=== PATIENT | female | born 1940 | race Caucasian/White ===

== ENCOUNTER 2016-05-12 12:13 | Inpatient (IN) | payer MEDICARE, OTHER ==
--- NOTE | 2016-05-12 12:34 | ER Document Report ---
ED Medical Screen (RME) - General Stated Complaint: WEAKNESS Time seen by provider: 12:31 Mode of Arrival: Medic Information source: Patient Notes: 76-year-old female presents to ED presents to ED for cough, sick, states she has not had a fever and very short of breath. She came via EMS and their O2 sat the highest they got was 87. Pulse ox in the ER was 87%. She has crackles throughout all lobes. States she has back pain but denies any chest pain. I have greeted and performed a rapid initial assessment of this patient. A comprehensive ED assessment and evaluation of the patient, analysis of test results and completion of medical decision making process will be conducted by an additional ED providers. TRAVEL OUTSIDE OF THE [place] IN LAST 30 DAYS: No - Related Data Allergies/Adverse Reactions: No Known Allergies Allergy (Verified 05/12/16 12:31) Past Medical History - Past Medical History Cardiac Medical History: Reports: Hx Hypertension Neurological Medical History: Denies: Hx Seizures GI Medical History: Reports: Hx Ulcer Psychiatric Medical History: Reports: Hx Depression Past Surgical History: Denies: Hx Hysterectomy - Immunizations Hx Diphtheria, Pertussis, Tetanus Vaccination: No
[2016-05-12 13:20] LABS: HEMATOCRIT 33.2 % (36.0-47.0); HEMOGLOBIN 10.9 g/dL (12.0-15.5); HGB HCT DIFFERENCE -0.5; MEAN CORPUSCULAR HEMOGLOBIN 32.1 pg (27.0-33.4); MEAN CORPUSCULAR HGB CONC 32.9 g/dL (32.0-36.0); MEAN CORPUSCULAR VOLUME 97 fl (80-97); RED CELL DISTRIBUTION WIDTH 14.3 % (11.5-14.0); WHITE BLOOD COUNT 27.2 10^3/uL (4.0-10.5)
[2016-05-12 13:36] LABS: ALANINE AMINOTRANSFERASE 48 U/L (9-52); ALBUMIN 3.9 g/dL (3.5-5.0); ALKALINE PHOSPHATASE 115 U/L (38-126); ANION GAP 17 (5-19); ASPARTATE AMINO TRANSFERASE 44 U/L (14-36); BILIRUBIN,DIRECT 0.3 mg/dL (0.0-0.4); BILIRUBIN,TOTAL 0.5 mg/dL (0.2-1.3); BLOOD UREA NITROGEN 38 mg/dL (7-20); CALCIUM 9.8 mg/dL (8.4-10.2); CARBON DIOXIDE 22 mmol/L (22-30); CHLORIDE 102 mmol/L (98-107); CREATINE KINASE 192 U/L (30-135); CREATININE RESULT 1.19 mg/dL (0.52-1.25); GLUCOSE 93 mg/dL (75-110); POTASSIUM 4.2 mmol/L (3.6-5.0); SODIUM 141.3 mmol/L (137-145)
[2016-05-12 13:40] LABS: BAND NEUTROPHILS % (MANUAL) 2 % (3-5); BASOPHILS % (MANUAL) 0 % (0-2); EOSINOPHILS % (MANUAL) 0 % (0-6); LYMPHOCYTES % (MANUAL) 2 % (13-45); TOTAL CELLS COUNTED 100
[2016-05-12 13:41] LABS: ANISOCYTOSIS SLIGHT
[2016-05-12 13:48] LABS: CREATINE KINASE MB 2.56 ng/mL (<4.55)
[2016-05-12] MEDS ORDERED: IPRATROPIUM/ALBUTEROL 0.5-2.5 MG/3 ML AMPUL NEB ONE (13:49)
[2016-05-12] MEDS ORDERED: LEVOFLOXACIN 750 MG/D5W RTU 150 ML IV ONE (13:49)
[2016-05-12 13:52] LABS: TROPONIN I 1.42 ng/mL
--- NOTE | 2016-05-12 13:55 | ER Document Report ---
ED General - General Chief Complaint: Weakness Stated Complaint: WEAKNESS Mode of Arrival: Medic Information source: Patient Notes: 76-year-old female presents with complaints of shortness of breath and weakness over the past few days. Patient noted to be satting 89% on room air, she was placed on 2 L nasal cannula by EMS with sats at 95%. Patient denies any productivity to the cough. Denies any fevers TRAVEL OUTSIDE OF THE [place] IN LAST 30 DAYS: No - HPI Onset: Other Onset/Duration: Persistent Quality of pain: Achy Severity: Mild Pain Level: 1 Associated symptoms: Nonproductive cough, Shortness of breath, Weakness Exacerbated by: Denies Relieved by: Denies Similar symptoms previously: No Recently seen / treated by doctor: No - Related Data Allergies/Adverse Reactions: No Known Allergies Allergy (Verified 05/12/16 12:31) Past Medical History - General Information source: Patient - Social History Smoking Status: Current Every Day Smoker Cigarette use (# per day): Yes Chew tobacco use (# tins/day): No Smoking Education Provided: No Frequency of alcohol use: None Drug Abuse: None Family History: Reviewed & Not Pertinent, COPD, Hypertension Patient has suicidal ideation: No Patient has homicidal ideation: No - Past Medical History Cardiac Medical History: Reports: Hx Hypertension Neurological Medical History: Denies: Hx Seizures Renal/ Medical History: Denies: Hx Peritoneal Dialysis GI Medical History: Reports: Hx Ulcer Psychiatric Medical History: Reports: Hx Depression Past Surgical History: Denies: Hx Hysterectomy - Immunizations Hx Diphtheria, Pertussis, Tetanus Vaccination: No Review of Systems - Review of Systems Notes: REVIEW OF SYSTEMS: CONSTITUTIONAL : Denies fever, chills, or sweats. Denies recent illness. EENT: Denies eye, ear, throat, or mouth pain or symptoms. Denies nasal or sinus congestion or discharge. Denies throat, tongue, or mouth swelling or difficulty swallowing. CARDIOVASCULAR: Denies chest pain. Denies palpitations or racing or irregular heart beat. Denies ankle edema. RESPIRATORY: Admits shortness of breath nonproductive cough GASTROINTESTINAL: Denies abdominal pain or distention. Denies nausea, vomiting , or diarrhea. Denies blood in vomitus, stools, or per rectum. Denies black, tarry stools. Denies constipation. GENITOURINARY: Denies difficulty urinating, painful urination, burning, frequency, blood in urine, or discharge. FEMALE GENITOURINARY: Denies vaginal bleeding, heavy or abnormal periods, irregular periods. Denies vaginal discharge or odor. MUSCULOSKELETAL: Denies back or neck pain or stiffness. Denies joint pain or swelling. SKIN: Denies rash, lesions or sores. HEMATOLOGIC : Denies easy bruising or bleeding. LYMPHATIC: Denies swollen, enlarged glands. NEUROLOGICAL: Denies confusion or altered mental status. Denies passing out or loss of consciousness. Denies dizziness or lightheadedness. Denies headache. Denies weakness or paralysis or loss of use of either side. Denies problems with gait or speech. Denies sensory loss, numbness, or tingling. Denies seizures. PSYCHIATRIC: Denies anxiety or stress. Denies depression, suicidal ideation, or homicidal ideation. ALL OTHER SYSTEMS REVIEWED AND NEGATIVE. Dictation was performed using [employer] voice recognition software PHYSICAL EXAMINATION: GENERAL: Well-appearing, well-nourished and in no acute distress. HEAD: Atraumatic, normocephalic. EYES: Pupils equal round and reactive to light, extraocular movements intact, conjunctiva are normal. ENT: Nares patent, oropharynx clear without exudates. Moist mucous membranes. NECK: Normal range of motion, supple without lymphadenopathy LUNGS: Coarse rhonchi all throughout HEART: Regular rate and rhythm without murmurs ABDOMEN: Soft, nontender, nondistended abdomen. No guarding, no rebound. No masses appreciated. Female : deferred Musculoskeletal: Normal range of motion, no pitting or edema. No cyanosis. NEUROLOGICAL: Cranial nerves grossly intact. Normal speech, normal gait. Normal sensory, motor exams PSYCH: Normal mood, normal affect. SKIN: Warm, Dry, normal turgor, no rashes or lesions noted. Physical Exam - Vital signs Vitals: Resp Pulse Ox 20 96 05/12/16 13:28 05/12/16 13:28 Course - Re-evaluation Re-evalutation: 05/12/16 13:54 pt has elevated wbc count 05/12/16 15:12 X-ray appears in no but lower lobe pneumonia, this is not read by radiology. However given the patient's coarse wheezing rest her distress I believe she is septic secondary to this. Patient will be admitted to the hospital service Elevated troponins are noted, I believe this is secondary to the sepsis causing strain on the heart. Patient does not have any cardiac issues at this moment. I do not believe it is appropriate to start heparin at this time - Vital Signs Vital signs: Temp Pulse Resp BP Pulse Ox 17 108/56 L 99 05/12/16 15:01 05/12/16 15:00 05/12/16 15:01 - Laboratory Result Diagrams: 05/12/16 12:40 05/12/16 12:40 Laboratory results interpreted by me: 05/12/16 05/12/16 12:40 12:40 WBC 27.2 H RBC 3.40 L Hgb 10.9 L Hct 33.2 L RDW 14.3 H Seg Neuts % (Manual) 79 H Band Neutrophils % 2 L Lymphocytes % (Manual) 2 L Monocytes % (Manual) 17 H Abs Neuts (Manual) 22.0 H Abs Monocytes (Manual) 4.6 H BUN 38 H Est GFR ( Amer) 53 L Est GFR (Non-Af Amer) 44 L AST 44 H Creatine Kinase 192 H - Diagnostic Test Radiology reviewed: Image reviewed, Reports reviewed - EKG Interpretation by Me EKG shows normal: Sinus rhythm, [place], Intervals, QRS Complexes Voltage: Consistant with LVH Critical Care Note - Critical Care Note Total time excluding time spent on procedures (mins): 34 Comments: 34 minutes of critical care time spent in direct contact evaluating and reevaluating the patient, treating symptoms, reviewing labs and studies and speaking with family and consultants excluding any procedures Discharge - Discharge Clinical Impression: Elevated troponin Sepsis Qualifiers: Sepsis type: sepsis due to unspecified organism Qualified Code(s): A41.9 - Sepsis, unspecified organism Pneumonia Qualifiers: Pneumonia type: due to unspecified organism Laterality: right Lung location: lower lobe of lung Qualified Code(s): J18.1 - Lobar pneumonia, unspecified organism Admitting Provider: Hospitalist Unit Admitted: [facility]
[2016-05-12] MEDS: NORMAL SALINE 1000 ML 1,000 ML IV PRN ×2 (14:09→22:00)
[2016-05-12 14:44] LABS: VENOUS BLOOD BASE EXCESS -3.9 mmol/L; VENOUS BLOOD HCO3 21.9 mmol/L (20-32); VENOUS BLOOD PCO2 42.5 mmHg (35-63); VENOUS BLOOD PH 7.33 (7.30-7.42)
[2016-05-12 15:10] LABS: APPEARANCE,URINE SLIGHTLY-CLOUDY; BILIRUBIN,URINE NEGATIVE (NEGATIVE); GLUCOSE, URINE NEGATIVE (NEGATIVE); KETONES,URINE NEGATIVE (NEGATIVE); LEUKOCYTE ESTERASE,URINE TRACE (NEGATIVE); NITRITE,URINE NEGATIVE (NEGATIVE); PROTEIN,URINE NEGATIVE (NEGATIVE); URINE SPECIFIC GRAVITY 1.009; UROBILINOGEN,URINE NEGATIVE mg/dL (<2.0)
[2016-05-12] MEDS ORDERED: NORMAL SALINE 1000 ML 1,000 ML IV PRN (15:50)
[2016-05-12] MEDS ORDERED: NICOTINE 14 MG/24 HR PATCH.TD24 TD PRN (15:58)
[2016-05-12] MEDS ORDERED: NORMAL SALINE 1000 ML 1,500 ML IV ONE (16:27)
--- NOTE | 2016-05-12 16:28 | PDOC H&P ---
History of Present Illness Admission Date/PCP: 05/12/16 15:45 History of Present Illness: MARY JANE CABA is a 76 year old female with a past medical history of hypertension, chronic back pain, depression, and COPD who continues to use tobacco who presents via EMS with shortness of breath. Patient reports that she 's been sick for at least a week and feeling worse over the last 48 hours. She reports fever and associated chills and rigors beginning today. She reports she had a cortisone injection in her back on Monday. She reports that she's had shortness of breath for at least a week or more and a cough productive of white sputum. She feels chest congestion and has had difficulty prompting her to activate EMS. Complete history of present illness is limited based on patient's lethargy. Upon EMS arrival patient was found to have oxygen saturation of 87% was placed on 2 L nasal cannula, given and albuterol and Atrovent nebulized treatment, and Levaquin and IV fluids in the emergency department. She is referred to hospital service for sepsis and pneumonia. Patient's medications are currently undergoing reconciliation and list provided is automatically generated by [employer]. Past Medical History Cardiac Medical History: Reports: Hypertension Pulmonary Medical History: Reports: Chronic Obstructive Pulmonary Disease (COPD) Neurological Medical History: Denies: Seizures Musculoskeltal Medical History: Reports: Arthritis Psychiatric Medical History: Reports: Depression Past Surgical History Past Surgical History: Reports: Orthopedic Surgery - R Shoulder Denies: Hysterectomy Social History Smoking Status: Current Every Day Smoker Cigarettes Packs Per Day: 1 Frequency of Alcohol Use: None Hx Recreational Drug Use: No Drugs: None Hx Prescription Drug Abuse: No - Advance Directive Resuscitation Status: Do Not Resuscitate Surrogate healthcare decision maker:: Barbara, [id number] Family History Family History: COPD, Hypertension, Malignancy Parental Family History Reviewed: Yes Children Family History Reviewed: Yes Sibling(s) Family History Reviewed.: Yes Medication/Allergy Home Medications: Diazepam [Valium 5 mg Tablet] 5 mg PO DAILYP PRN 05/12/16 Diclofenac Sodium [Voltaren] 1 applic TP TIDP PRN 05/12/16 Duloxetine HCl 30 mg PO QPM 05/12/16 Duloxetine HCl 60 mg PO DAILY 05/12/16 Gabapentin [Neurontin 300 mg Capsule] 300 mg PO TIDP PRN 05/12/16 Prednisone [Deltasone 20 mg Tablet] 20 mg PO TID 05/12/16 Temazepam [Restoril] 30 mg PO HSP PRN 05/12/16 Allergies/Adverse Reactions: No Known Allergies Allergy (Verified 05/12/16 12:31) Review of Systems Constitutional: PRESENT: anorexia, chills, fatigue, fever(s), weakness. ABSENT : headache(s), weight gain, weight loss Eyes: ABSENT: visual disturbances Ears: ABSENT: hearing changes Nose, Mouth, and Throat: ABSENT: mouth pain, sore throat Cardiovascular: ABSENT: chest pain, dyspnea on exertion, edema, orthropnea, palpitations Respiratory: PRESENT: cough, dyspnea, sputum. ABSENT: hemoptysis Gastrointestinal: ABSENT: abdominal pain, constipation, diarrhea, hematemesis, hematochezia, melena, nausea, vomiting Genitourinary: ABSENT: dysuria, hematuria Musculoskeletal: ABSENT: joint swelling Integumentary: ABSENT: rash, wounds Neurological: ABSENT: abnormal gait, abnormal speech, confusion, dizziness, focal weakness, syncope Psychiatric: ABSENT: anxiety, depression, homidical ideation, suicidal ideation Endocrine: ABSENT: cold intolerance, heat intolerance, polydipsia, polyuria Hematologic/Lymphatic: ABSENT: easy bleeding, easy bruising Physical Exam Vital Signs: Temp Pulse Resp BP Pulse Ox 17 108/56 L 99 05/12/16 15:01 05/12/16 15:00 05/12/16 15:01 General appearance: PRESENT: mild distress, obese, well-developed, well- nourished Head exam: PRESENT: atraumatic, normocephalic Eye exam: PRESENT: conjunctiva pink, EOMI, PERRLA. ABSENT: scleral icterus Ear exam: PRESENT: normal external ear exam Mouth exam: PRESENT: dry mucosa, tongue midline Neck exam: PRESENT: lymphadenopathy. ABSENT: JVD, thyromegaly, tracheal deviation Respiratory exam: PRESENT: accessory muscle use, crackles, prolonged expiratory phas, rhonchi, symmetrical, unlabored. ABSENT: decreased breath sounds, rales, tachypnea, wheezes Cardiovascular exam: PRESENT: RRR, +S1, +S2. ABSENT: diastolic murmur, gallop, rubs, systolic murmur Pulses: PRESENT: normal dorsalis pedis pul Vascular exam: PRESENT: normal capillary refill GI/Abdominal exam: PRESENT: diminished bowel sounds, soft. ABSENT: distended, firm, guarding, mass, Leos's sign, organolmegaly, rebound, rigid, tenderness Rectal exam: PRESENT: deferred Extremities exam: PRESENT: full ROM. ABSENT: calf tenderness, clubbing, pedal edema Neurological exam: PRESENT: altered - Lethargic, CN II-XII grossly intact. ABSENT: motor sensory deficit Psychiatric exam: PRESENT: appropriate affect, normal mood. ABSENT: homicidal ideation, suicidal ideation Skin exam: PRESENT: dry, intact, warm. ABSENT: cyanosis, rash Results Laboratory Results: 05/12/16 05/12/16 05/12/16 12:40 12:40 12:40 WBC 27.2 H Hgb 10.9 L Hct 33.2 L Plt Count 199 Sodium 141.3 Potassium 4.2 Chloride 102 Carbon Dioxide 22 Anion Gap 17 BUN 38 H Creatinine 1.19 Glucose 93 Lactic Acid Calcium 9.8 Total Bilirubin 0.5 Direct Bilirubin 0.3 AST 44 H ALT 48 Alkaline Phosphatase 115 Creatine Kinase 192 H CK-MB (CK-2) 2.56 Troponin I 1.420 Total Protein 7.0 Albumin 3.9 Ur Leukocyte Esterase Urine WBC (Auto) 05/12/16 05/12/16 14:25 14:40 WBC Hgb Hct Plt Count Sodium Potassium Chloride Carbon Dioxide Anion Gap BUN Creatinine Glucose Lactic Acid 1.4 Calcium Total Bilirubin Direct Bilirubin AST ALT Alkaline Phosphatase Creatine Kinase CK-MB (CK-2) Troponin I Total Protein Albumin Ur Leukocyte Esterase TRACE H Urine WBC (Auto) 9 Impressions: Chest X-Ray 05/12/16 13:52 IMPRESSION: NO ACUTE RADIOGRAPHIC FINDING IN THE CHEST. Status: Imported from PACS Assessment & Plan - Diagnosis (1) Sepsis Qualifiers: Sepsis type: sepsis due to unspecified organism Qualified Code(s): A41.9 - Sepsis, unspecified organism Is this a current diagnosis for this admission?: YesPlan: Patient with underlying pneumonia clinically though nothing present on chest x- ray. Patient on Levaquin and cefepime. Patient is artery receive 2 L of normal saline will give her an additional 1 1/2 L bolus and then run fluids judiciously. Maintain a map greater than 65. (2) Acute hypoxemic respiratory failure Is this a current diagnosis for this admission?: YesPlan: Oxygen as needed and BiPAP to maintain saturation greater than 94% (3) Elevated troponin Is this a current diagnosis for this admission?: YesPlan: Likely secondary to sepsis. Will consult cardiology. (4) Pneumonia Qualifiers: Pneumonia type: due to unspecified organism Laterality: right Lung location: lower lobe of lung Qualified Code(s): J18.1 - Lobar pneumonia, unspecified organism Is this a current diagnosis for this admission?: YesPlan: Place patient on cefepime and Levaquin. Patient has COPD. Initiate patient on Solu-Medrol. Will check a influenza. Will check ABG and place when necessary BiPAP. Incentive spirometry and flutter valve. Concern for this time for gram-negative pneumonia as patient had recent history of GI bleed and patient has previously been on benzodiazepines which may lead to aspiration given her underlying COPD. (5) Hypertension Qualifiers: Hypertension type: essential hypertension Qualified Code(s): I10 - Essential (primary) hypertension Is this a current diagnosis for this admission?: YesPlan: Hold antihypertensives at this time she is mildly hypotensive (6) Tobacco abuse Is this a current diagnosis for this admission?: YesPlan: Nicotine patch when necessary - Time Time Spent: 50 to 70 Minutes Medications reviewed and adjusted accordingly: Yes - Inpatient Certification Based on my medical assessment, after consideration of the patient's comorbidities, presenting symptoms, or acuity I expect that the services needed warrant INPATIENT care.: Yes I certify that my determination is in accordance with my understanding of Medicare's requirements for reasonable and necessary INPATIENT services [42 CFR 412.3e].: Yes Medical Necessity: Need For IV Fluids, Need For Continuous Telemetry Monitoring , Need for Nebulizer Therapy and Monitoring of Response, Need for IV Antibiotics Post Hospital Care: D/C Siding Stapler Documentation
[2016-05-12] MEDS: IPRATROPIUM/ALBUTEROL 0.5-2.5 MG/3 ML AMPUL NEB SCH ×2 (16:54→20:15)
[2016-05-12] MEDS ORDERED: CEFEPIME 2 GM/D5W RTU 2 GM/50 ML RTUPB IV SCH (18:00)
[2016-05-12] MEDS ORDERED: RISPERIDONE 0.5 MG PO SCH (18:00)
[2016-05-12] MEDS: SUCRALFATE SUSP 1 GM/10 ML UDCUP PO SCH (18:39)
[2016-05-12] MEDS: METHYLPREDNISOLONE INJ 40 MG/1 ML SDV IV SCH (18:39)
[2016-05-12] MEDS: DOCUSATE SODIUM 100 MG CAPSULE PO SCH (18:39)
[2016-05-12] MEDS: LANSOPRAZOLE 30 MG TAB.RAP.DR PO SCH (18:40)
[2016-05-12 18:50] LABS: URINE BARBITURATES SCREEN NEGATIVE; URINE METHADONE SCREEN NEGATIVE; URINE OPIATES LOW NEGATIVE; URINE PHENCYCLIDINE SCREEN NEGATIVE
[2016-05-12 19:09] LABS: CREATINE KINASE MB 4.24 ng/mL (<4.55)
[2016-05-12 19:13] LABS: TROPONIN I 2.35 ng/mL
[2016-05-12] MEDS: CEFEPIME HCL 2 GM in DEXTROSE 5%-WATER 50 ML IV SCH (19:54)
--- NOTE | 2016-05-12 20:43 | EKG REPORT ---
SEVERITY:- ABNORMAL ECG - SINUS RHYTHM MULTIPLE ATRIAL PREMATURE COMPLEXES LEFT ANTERIOR FASCICULAR BLOCK LVH WITH SECONDARY REPOLARIZATION ABNORMALITY ANTERIOR Q WAVES, POSSIBLY DUE TO LVH : Confirmed by: Jazzmine Gutierrez 12-May-2016 20:42:36
[2016-05-12] MEDS: SENNOSIDES/DOCUSATE 8.6-50 MG 1 EACH TABLET PO SCH (21:18)
[2016-05-12] MEDS: GUAIFENESIN 600 MG TABLET.SA PO SCH (21:18)
[2016-05-12] MEDS ORDERED: DIAZEPAM 2 MG TABLET PO PRN (21:30)
[2016-05-12] MEDS ORDERED: TEMAZEPAM 15 MG PO PRN (21:30)
[2016-05-12] MEDS: TEMAZEPAM 15 MG CAPSULE PO PRN (21:58)
[2016-05-12] MEDS ORDERED: SUCRALFATE SUSP 1 GM/10 ML UDCUP PO SCH (22:00)
[2016-05-12] MEDS ORDERED: RISPERIDONE 1 MG PO SCH (22:00)
[2016-05-13] MEDS: METHYLPREDNISOLONE INJ 40 MG/1 ML SDV IV SCH ×5 (00:04→23:47)
[2016-05-13 04:34] LABS: HEMATOCRIT 28.6 % (36.0-47.0); HEMOGLOBIN 9.5 g/dL (12.0-15.5); HGB HCT DIFFERENCE -0.1; MEAN CORPUSCULAR HEMOGLOBIN 32.5 pg (27.0-33.4); MEAN CORPUSCULAR VOLUME 98 fl (80-97); RED BLOOD COUNT 2.91 10^6/uL (3.72-5.28); RED CELL DISTRIBUTION WIDTH 14.4 % (11.5-14.0); WHITE BLOOD COUNT 16.2 10^3/uL (4.0-10.5)
[2016-05-13 05:02] LABS: ANION GAP 13 (5-19); BLOOD UREA NITROGEN 29 mg/dL (7-20); CALCIUM 8.4 mg/dL (8.4-10.2); CARBON DIOXIDE 21 mmol/L (22-30); CHLORIDE 111 mmol/L (98-107); CREATININE RESULT 0.89 mg/dL (0.52-1.25); GLUCOSE 151 mg/dL (75-110); POTASSIUM 4.3 mmol/L (3.6-5.0); SODIUM 144.5 mmol/L (137-145)
[2016-05-13 05:09] LABS: BASOPHILS % (MANUAL) 0 % (0-2); EOSINOPHILS % (MANUAL) 0 % (0-6); LYMPHOCYTES % (MANUAL) 1 % (13-45); TOTAL CELLS COUNTED 100
[2016-05-13 05:10] LABS: ANISOCYTOSIS SLIGHT; BURR CELLS SLIGHT; OVALOCYTES SLIGHT; TOXIC GRANULATION SLIGHT
[2016-05-13] MEDS: LEVALBUTEROL HCL NEB 1.25 MG/3 ML AMPUL NEB PRN (05:44)
[2016-05-13] MEDS ORDERED: FONDAPARINUX SODIUM INJ 2.5 MG/0.5 ML DISP.SYRIN SUBCUT SCH (08:00)
[2016-05-13] MEDS: IPRATROPIUM/ALBUTEROL 0.5-2.5 MG/3 ML AMPUL NEB SCH ×4 (08:51→19:45)
[2016-05-13] MEDS: DOCUSATE SODIUM 100 MG CAPSULE PO SCH ×2 (09:25→17:24)
[2016-05-13] MEDS: LEVOFLOXACIN 750 MG/D5W RTU 150 ML IV SCH (09:25)
[2016-05-13] MEDS: GUAIFENESIN 600 MG TABLET.SA PO SCH ×2 (09:25→21:16)
[2016-05-13] MEDS: LANSOPRAZOLE 30 MG TAB.RAP.DR PO SCH ×2 (09:26→16:03)
[2016-05-13] MEDS: CEFEPIME HCL 2 GM in DEXTROSE 5%-WATER 50 ML IV SCH ×2 (09:29→19:15)
[2016-05-13] MEDS: SUCRALFATE SUSP 1 GM/10 ML UDCUP PO SCH ×4 (09:31→21:20)
[2016-05-13] MEDS ORDERED: DIAZEPAM 5 MG TABLET PO PRN (10:11)
[2016-05-13] MEDS ORDERED: GABAPENTIN 300 MG CAPSULE PO PRN (10:11)
[2016-05-13] MEDS ORDERED: NORMAL SALINE 1000 ML 1,000 ML IV PRN (10:14)
--- NOTE | 2016-05-13 10:54 | EKG REPORT ---
SEVERITY:- ABNORMAL ECG - SINUS RHYTHM VENTRICULAR PREMATURE COMPLEX LEFT AXIS DEVIATION LVH WITH SECONDARY REPOLARIZATION ABNORMALITY ANTERIOR Q WAVES, POSSIBLY DUE TO LVH PROLONGED QT INTERVAL : Confirmed by: Jazzmine Gutierrez 13-May-2016 10:53:43
[2016-05-13] MEDS: GABAPENTIN 300 MG CAPSULE PO SCH ×2 (12:33→21:15)
--- NOTE | 2016-05-13 13:58 | PDOC PROGRESS REPORT ---
Subjective Progress Note for:: 05/13/16 Subjective:: Patient reports that she's feeling much better than yesterday. She reports that she had dark stool. Patient also states that she's had interval loss of vision from her left eye. 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 She reports that now everything is blurry in that eye. She denies any ocular pain. Patient denies chest pain, abdominal pain, nausea, vomiting, fevers, chills, diarrhea, constipation, headache, new onset weakness. Physical Exam Vital Signs: Temp Pulse Resp BP Pulse Ox 98.5 F 83 24 H 142/70 H 95 05/13/16 03:35 05/13/16 06:06 05/13/16 06:06 05/13/16 03:35 05/13/16 06:06 Intake & Output 05/12/16 05/13/16 05/14/16 06:59 06:59 06:59 Intake Total 2103 Output Total 450 Balance 1653 Weight 54.9 kg Exam: General: Awake alert and oriented x3, no acute respiratory distress HEENT: AT/NC, PERRL, EOMI, oropharynx is moist, pink, no scleral icterus, no conjunctival injection Neck: No JVD, trachea midline Chest: Rhonchi bilateral bibasilar CV: Regular rate and rhythm, normal S1 and S2, no rub or gallop; 2/6 sm apex Abdomen: Soft, nontender to palpation, nondistended, active bowel sounds; no rebound, rigidity, or guarding Extremities: No cyanosis, clubbing or edema Neuro: Cranial nerves II through XII are intact without focal deficits; awake alert and oriented x3; strength 5 out of 5 bilateral upper and lower extremities Psych: Depressed mood, normal affect Results Laboratory Results: 05/13/16 03:46 05/13/16 03:46 05/13/16 05/13/16 03:46 03:46 WBC 16.2 H RBC 2.91 L Hgb 9.5 L Hct 28.6 L MCV 98 H MCH 32.5 MCHC 33.0 RDW 14.4 H Plt Count 165 Seg Neutrophils % Not Reportable Lymphocytes % Not Reportable Monocytes % Not Reportable Eosinophils % Not Reportable Basophils % Not Reportable Absolute Neutrophils Not Reportable Absolute Lymphocytes Not Reportable Absolute Monocytes Not Reportable Absolute Eosinophils Not Reportable Absolute Basophils Not Reportable Sodium 144.5 Potassium 4.3 Chloride 111 H Carbon Dioxide 21 L Anion Gap 13 BUN 29 H Creatinine 0.89 Est GFR ( Amer) > 60 Est GFR (Non-Af Amer) > 60 Glucose 151 H Calcium 8.4 05/12/16 05/12/16 05/13/16 18:35 18:35 00:27 Creatine Kinase 255 H CK-MB (CK-2) 4.24 Troponin I 2.350 1.350 Impressions: Chest X-Ray 05/12/16 13:52 IMPRESSION: NO ACUTE RADIOGRAPHIC FINDING IN THE CHEST. Assessment & Plan - Diagnosis (1) Sepsis Qualifiers: Sepsis type: sepsis due to unspecified organism Qualified Code(s): A41.9 - Sepsis, unspecified organism Is this a current diagnosis for this admission?: YesPlan: Patient with underlying pneumonia clinically though nothing present on chest x- ray. Patient on Levaquin and cefepime. Maintain a map greater than 65. (2) Acute hypoxemic respiratory failure Is this a current diagnosis for this admission?: YesPlan: Oxygen as needed and BiPAP to maintain saturation greater than 94% (3) Pneumonia Qualifiers: Pneumonia type: due to unspecified organism Laterality: right Lung location: lower lobe of lung Qualified Code(s): J18.1 - Lobar pneumonia, unspecified organism Is this a current diagnosis for this admission?: YesPlan: On cefepime and Levaquin day #2. Incentive spirometry and flutter valve. Patient has COPD. will decrease Solu-Medrol. Influenza negative. Concern for this time for gram-negative pneumonia as patient at this time describes significant dysphasia with eating and drinking. Particularly drinking thin liquids (4) NSTEMI (non-ST elevated myocardial infarction) Is this a current diagnosis for this admission?: YesPlan: Patient with a non-ST segment myocardial infarction. This was likely precipitated due to underlying disease which became symptomatic when patient was hypoxic. The extent this also appears to be exaggerated by her sepsis. Will obtain an echo. Appreciate cardiology input. Have discussed this case with Dr. BURKETT of cardiology. Patient not candidate for anticoagulation due to recent GI bleed. Will initiate patient on metoprolol and lisinopril. (5) Acute loss of vision Qualifiers: Laterality: left Qualified Code(s): H53.132 - Sudden visual loss, left eye Is this a current diagnosis for this admission?: YesPlan: We'll check a CT of the head. Most likely this is a progression of her underlying visual difficulties for which patient utilizes both prescription and [id number] glasses at the same time. Will place refresh eyedrops. On physical examination, patient's vision is blurred but still present. Patient has no pain and have considered acute glaucoma, but is unlikely. (6) Duodenal ulcer due to nonsteroidal anti-inflammatory drug (NSAID) Is this a current diagnosis for this admission?: YesPlan: In light of patient's recent what also and complaints of melena, will check occult blood. Have held all anticoagulation due to risk of bleeding. Patient is not a candidate for initiation of heparin, Lovenox, or aspirin or Plavix for her non-STEMI. Patient on Carafate and Prevacid. (7) Tobacco abuse Is this a current diagnosis for this admission?: YesPlan: Nicotine patch when necessary (8) Hypertension Qualifiers: Hypertension type: essential hypertension Qualified Code(s): I10 - Essential (primary) hypertension Is this a current diagnosis for this admission?: YesPlan: Low-dose lisinopril and metoprolol - Time Time Spent with patient: 35 or more minutes Medications reviewed and adjusted accordingly: Yes Anticipated discharge: Acute Rehab - Inpatient Certification Based on my medical assessment, after consideration of the patient's comorbidities, presenting symptoms, or acuity I expect that the services needed warrant INPATIENT care.: Yes I certify that my determination is in accordance with my understanding of Medicare's requirements for reasonable and necessary INPATIENT services [42 CFR 412.3e].: Yes Medical Necessity: Need For Continuous Telemetry Monitoring, Need for Nebulizer Therapy and Monitoring of Response, Need for IV Antibiotics Post Hospital Care: D/C Driver Retraining Instructor Documentation
[2016-05-13] MEDS ORDERED: LISINOPRIL 5 MG TABLET PO ONE (15:00)
[2016-05-13] MEDS: ACETAMINOPHEN 325 MG TABLET PO PRN (17:23)
[2016-05-13] MEDS: DULOXETINE HCL 30 MG CAPSULE.DR PO SCH (17:23)
[2016-05-13] MEDS: METOPROLOL TARTRATE 25 MG TABLET PO SCH (21:15)
[2016-05-13] MEDS: SENNOSIDES/DOCUSATE 8.6-50 MG 1 EACH TABLET PO SCH (21:16)
[2016-05-13] MEDS: TEMAZEPAM 15 MG CAPSULE PO PRN (21:18)
[2016-05-13] MEDS ORDERED: ENALAPRILAT DIHYDRATE INJ/PF 1.25 MG/1 ML SDV IV ONE ×2 (22:19→22:45)
[2016-05-14] MEDS: LEVALBUTEROL HCL NEB 1.25 MG/3 ML AMPUL NEB PRN (04:18)
--- NOTE | 2016-05-14 04:59 | CONSULTATION REPORT E ---
Consultation Report NAME: MARY JANE CABA : 1940 AGE: 76Y DATE: 05/13/2016 303 A TO: BREE NEVILLE M.D. FROM: Requesting Physician HISTORY OF PRESENT ILLNESS: Patient is a 76-year-old female with known history of COPD, who continues to smoke, complains that for the past 1 week, she was feeling more short of breath and progressively increased rest shortness of breath. She also had fever, chills, and rigors, and that her last temperature is not known. There was also some wheezing. She also had cough, productive of whitish sputum and there was orthopnea, but no leg edema or PND. She could feel palpitations. There was no dizziness or syncope, but the patient complained of generalized weakness. She also felt congestion in the chest and had difficulty trying to get the EMS to come, due to her inability to call them. Upon arrival to the EMS, O2 saturation on room air was 88%. The patient was placed on 2 liters nasal cannula and given albuterol and Atrovent nebulizer treatment, and also Levaquin and IV fluids in the emergency room and subsequently at present, she seems to be still short of breath, but much improved. She denies any chest pain or discomfort. She still has some orthopnea with no leg edema. There are no TIA or CVA symptoms. There is no PND. She denies any chest pains. Initial EKG on admission showed T inversion in the anterior lead and nonspecific ST-T changes in the lateral lead. This was on admission when she was hypoxemic. Subsequently, the patient's O2 saturations were much improved on O2 and treatment and treatment with the anti-COPD medication and antibiotics. The patient's EKG done this morning shows that the T-waves have normalized in the anterior lead and the ST-T changes have much improved. Note that there were APCs in both the EKGs. PAST MEDICAL HISTORY: Positive for history of hypertension and history of COPD. The patient continues to smoke. She also has history of arthritis and depression. There is no history of sleep apnea. No history of pulmonary embolism. She has no history of diabetes mellitus or thyroid disease. She denies any syncopal episodes. There is no history of ND, angina, or coronary artery disease. Note she has had a history of stroke in the past. Voice is hoarse, but no residual sequelae. The patient has a past history of large duodenal ulcer, which had bled. Hence, the patient is not a candidate for anticoagulation. 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 PAST SURGICAL HISTORY: Right rotator cuff shoulder surgery. She has also had carotid stents. She also has bilateral knee surgery.Removal of cancerous laryngeal polyp. SOCIAL HISTORY: The patient currently smokes. There is no history of EtOH consumption. She smokes 1 packet of cigarettes a day. CODE STATUS: The patient is a DNR/DNI. SURROGATE HEALTHCARE DECISION MAKER: The surrogate healthcare decision maker is the patient's [id number], Ms. Jimenez. FAMILY HISTORY: Positive for COPD, malignancy and hypertension. The patient's parents family history, the patient's children and siblings' histories have been reviewed and these are negative. ALLERGIES: She has no known allergies. CURRENT MEDICATIONS: 1. Acetaminophen 650 mg p.o. q. 4 hours p.r.n. 2. She is on cefepime 2 g IV q. 12 hours. 3. She is on diazepam 5 mg p.o. daily p.r.n. 4. She is on Colace 100 mg p.o. b.i.d. 5. She is on Cymbalta 60 mg p.o. daily in the morning and 30 mg in the p.m. 6. She is on Neurontin 300 mg p.o. q. 8 hours for chronic back pain. 7. She is on Mucinex sustained release 600 mg p.o. q. 12 hours. 8. She is on Levaquin 750 mg IV daily. 9. She did receive 2 bags of normal saline IV. 10. She is on ipratropium, albuterol sulfate nebulizer treatment q. 4 hours while awake. 11. She is on lansoprazole 30 mg p.o. b.i.d. (Prevacid). 12. She is on Xopenex 1.25 mg nebulizer treatment q. 12 hours p.r.n. 13. She is on lisinopril 2.5 mg x1 and 2.5 mg p.o. daily. 14. She is on methylprednisolone 80 mg IV q. 6 hours. 15. She is on metoprolol 12.5 mg p.o. q. 12 hours. 16. She is on NicoDerm patch 14 mg per 24 hours, 1 patch daily. 17. She is on sennosides/docusate 1 each p.o. at bedtime. 18. She is on sucralfate 1 g p.o. at breakfast and at bedtime. 19. She is on temazepam 15 mg p.o. at bedtime p.r.n. 20. She is on normal saline at 83 mL per hour. REVIEW OF SYSTEMS: CONSTITUTIONAL: She complains of decreased appetite that is anorexia, chills, fatigue, fever, and generalized weakness. HEAD: Denies any headaches or head injury. EYES: No history of amblyopia or diplopia. No history of amaurosis fugax. EARS: No history of hearing change or loss. No history of vertigo. No history of tinnitus. No history of recurrent ear infections. NOSE: No history of hay fever. No history of nosebleeds. No history of nasal polyps. MOUTH: No altered taste sensation. No ulcers in the mouth. No bleeding from the gums. THROAT: No history of odynophagia or dysphagia. The patient has a hoarse voice. There are no recurrent sore throats. SKIN: No history of skin rashes. No history of psoriasis. No history of pruritus. No history of yellowish discoloration of the skin. NECK: No history of symptoms suggestive of C-spine arthritis. No history of painful or painless swelling in the neck. No goiter. LUNGS: History of COPD. Patient continues to smoke. The patient states that with even minimal work she gets short of breath. Recent symptoms suggestive of acute exacerbation of COPD with bronchitis. She has no history of sleep apnea. No history of pulmonary embolism. No history of hemoptysis. No history of pleuritic chest pain. CARDIAC: History of hypertension present. No history of atrial arrhythmias or ventricular arrhythmias. No history of congestive heart failure. No history of coronary artery disease, ND or anginal symptoms. No history of PND. History of orthopnea present. No history of leg edema. No history of palpitations or syncope. GASTROINTESTINAL: Past history of large duodenal ulcer with bleeding, but no symptoms of peptic ulcer disease at present. No history of fatty food intolerance. No history of altered bowel movements. No history of abdominal pain. History of decreased appetite and anorexia present. MUSCULOSKELETAL: History of osteoarthritis present. No history of collagen vascular disease. RENAL: She denies any history of chronic kidney disease. GENITOURINARY: No symptoms of UTI. No history of hematuria, pyuria or dysuria. CENTRAL NERVOUS SYSTEM: Prior history of stroke, fully recovered except for hoarseness of voice, she says. There is no history of gait imbalance. No history of sleep apnea. No history of headaches or seizures or dizziness. PSYCHIATRIC: History of depression. No history of suicidal ideation. No history of anxiety. HEMATOLOGICAL: No history of bleeding diathesis or clotting disorders. VASCULAR: No history of calf or buttock claudication. No history of DVT. The patient is seen around 10:30 this morning of 05/13/2016. ENDOCRINE: There is no history of diabetes mellitus or thyroid disease. No history of polydipsia or polyuria. No history of heat or cold intolerance. No history of hirsutism. No history of excessive sweating. As mentioned earlier, her O2 sats now are 90% to 95% and the EKG changes have resolved. PHYSICAL EXAMINATION: GENERAL: On examination, the patient is in mild distress due to shortness of breath when she moves around, but at rest she has no distress and says that her bleeding is much improved with the current treatment. She is well-built, but looks chronically ill. VITAL SIGNS: She is afebrile with a temperature of 98.2 degrees Fahrenheit only, pulse is 96 beats per minute, blood pressure is 166/71, respirations are 20 per minute, O2 sats are 98% on 1 liter, and subsequently 95% on 2 liters nasal cannula. HEAD: Atraumatic, normocephalic. EYES: Pupils are equal, round, regular, and reactive to light and accommodation. Extraocular movements are normal. There is no conjunctival pallor. There is no scleral icterus. EARS: There are no lesions on the pinna. External auditory canals are clear. Tympanic membranes are intact. NOSE: There is no deviated nasal septum. There is inflammation of nasal mucous membrane. MOUTH: Mucous membranes of the mouth are moist. Tongue is moist. There are no ulcers. There is no bleeding from the gums. THROAT: There is no redness of the oral veins. There are no exudates in the throat. SKIN: There are no skin rashes. There are no petechiae or ecchymoses. NECK: Supple. There is no JVD. Carotids are equal. There is no bruit. There are no accessory muscles of respiration in use. There is no goiter. There is no lymphadenopathy. Carotids are equal. There is no bruit. Trachea is shifted to the left. LUNGS: Show diminished air entry and prolonged expiration with rhonchi bilaterally. HEART: S1, S2 is heard. There is no S3 gallop. There is no S4 gallop. There is a systolic murmur in left sternal border in the apex. There is no diastolic murmur. There is no rub. ABDOMEN: Soft, nontender. There is no hepatosplenomegaly. Bowel sounds are well heard. There is no rebound, guarding, rigidity or tenderness. EXTREMITIES: Femorals are diminished. There are no femoral bruits. Leg pulses are diminished. There is no DVT or cellulitis. There is no calf tenderness. There is no cyanosis or clubbing. CENTRAL NERVOUS SYSTEM: The patient is conscious, awake, alert, oriented x3 with no focal deficits. PSYCHIATRIC: At present, the patient does not appear to be anxious or depressed. DIAGNOSTIC DATA: The patient's chest x-ray shows that this is a normal chest x-ray by report, but I suspect there is an early RLL pneumonia. The patient's head CT due to the patient complained of left eye vision los s, shows no hemorrhage, no masses, no midline shift, areas of low density in the white matter, most likely due to chronic microvascular ischemic change. No evidence of acute infarction. No masses. No hemorrhage. No alteration of density. No evidence of acute infarction. There is no mass or hematoma. The patient's sodium is 144.5, potassium 4.3, chloride is 111, and CO2 is 21. The patient's BUN is 29, creatinine is 0.89, GFR is greater than 60, glucose is 151, and calcium is 8.4. Note, her troponin I initially was 1.420 and increased to 2.35 and then have now trended down to 1.350. The patient's white count is 16,200, which is down from 27,200 yesterday; her hemoglobin is 9.5, hematocrit is 28.6 and the platelet count is 165,000. The patient's urine opiate screen, methadone screen, barbiturate screen, phencyclidine screen, amphetamine screen, benzodiazepine screen, urine cocaine screen, and urine marijuana screen are all negative. The patient's influenza A and influenza B rapid tests have been negative. IMPRESSION: 1. ELEVATED TROPONIN I, secondary to mostly hypoxemia. 2. ABNORMAL EKG WITH RESOLVED EKG CHANGES AND THE PATIENT'S O2 SATS CAME BACK TO NORMAL. The EKG changes were present as I have mentioned earlier when the patient was hypoxemic. 3. MOST LIKELY, THIS IS SUPPLY DEMAND MISMATCH AND NOT A NON-ST ELEVATION MYOCARDIAL INFARCTION, but patient does have some risk factors such as age, hypertension, smoking and ? lipid level. 4. CHRONIC OBSTRUCTIVE PULMONARY DISEASE, acute exacerbation. 5. RLL PNEUMONIA. 6.HYPERTENSION. Blood pressure is still a little high. 7. DEPRESSION. 8. HISTORY OF ARTHRITIS. 9. TOBACCO ABUSE. 10. CHRONIC BACK PAIN. RECOMMENDATIONS: Agree with the current treatment including antibiotics. Note in view of the patient's past history of large duodenal ulcer, would hesitate to put the patient on aspirin or Plavix. We would recommend later when the acute COPD exacerbation is over. We would increase the patient's beta-farida. Continue other treatments. Note, 45 minutes spent on patient's consult, with more than 50% of the time spent in direct patient care, also, discussions with the hospitalist, taking care of the patient and also the nurses taking care of the patient. We will follow with you. Later once if the patient and sister are agreeable, then we would recommend that the patient have an IV Lexiscan, Cardiolite stress test done as an outpatient. Also, we would check an echocardiogram. Note that the patient was seen at 11:30 a.m. Thanking you. DICTATING PHYSICIAN: BREE NEVILLE M.D. [id number] PHY#: [id number] ID: [id number] JOB#: [id number] ACCT: [id number] cc:BREE NEVILLE M.D. > [facility]ERKeara
[2016-05-14] MEDS: METHYLPREDNISOLONE INJ 40 MG/1 ML SDV IV SCH ×3 (05:12→21:29)
[2016-05-14] MEDS: GABAPENTIN 300 MG CAPSULE PO SCH ×3 (05:12→21:28)
[2016-05-14 05:26] LABS: HEMATOCRIT 26.9 % (36.0-47.0); HGB HCT DIFFERENCE 0.1; MEAN CORPUSCULAR HEMOGLOBIN 32.8 pg (27.0-33.4); MEAN CORPUSCULAR HGB CONC 33.6 g/dL (32.0-36.0); MEAN CORPUSCULAR VOLUME 98 fl (80-97); RED BLOOD COUNT 2.75 10^6/uL (3.72-5.28); RED CELL DISTRIBUTION WIDTH 14.2 % (11.5-14.0); WHITE BLOOD COUNT 13.4 10^3/uL (4.0-10.5)
[2016-05-14 05:55] LABS: ANION GAP 12 (5-19); BLOOD UREA NITROGEN 27 mg/dL (7-20); CALCIUM 9.1 mg/dL (8.4-10.2); CARBON DIOXIDE 20 mmol/L (22-30); CHLORIDE 110 mmol/L (98-107); CREATININE RESULT 0.81 mg/dL (0.52-1.25); GLUCOSE 150 mg/dL (75-110); SODIUM 142.1 mmol/L (137-145)
[2016-05-14 05:56] LABS: BASOPHILS % (MANUAL) 0 % (0-2); EOSINOPHILS % (MANUAL) 0 % (0-6); LYMPHOCYTES % (MANUAL) 4 % (13-45); TOTAL CELLS COUNTED 100
[2016-05-14 05:58] LABS: ANISOCYTOSIS SLIGHT; OVALOCYTES SLIGHT; POIKILOCYTOSIS SLIGHT; TOXIC GRANULATION SLIGHT
[2016-05-14] MEDS: CEFEPIME HCL 2 GM in DEXTROSE 5%-WATER 50 ML IV SCH ×2 (08:12→19:56)
[2016-05-14] MEDS: SUCRALFATE SUSP 1 GM/10 ML UDCUP PO SCH ×4 (08:13→21:32)
[2016-05-14] MEDS: LANSOPRAZOLE 30 MG TAB.RAP.DR PO SCH ×2 (08:13→15:58)
[2016-05-14] MEDS: METOPROLOL TARTRATE 25 MG TABLET PO SCH ×2 (08:15→21:27)
[2016-05-14] MEDS: IPRATROPIUM/ALBUTEROL 0.5-2.5 MG/3 ML AMPUL NEB SCH ×4 (08:19→20:58)
[2016-05-14] MEDS ORDERED: LISINOPRIL 5 MG TABLET PO SCH ×3 (10:00)
[2016-05-14] MEDS ORDERED: FUROSEMIDE INJ/PF 20 MG/2 ML SDV IV ONE (10:30)
[2016-05-14] MEDS: HYDRALAZINE HCL INJ/PF 20 MG/1 ML SDV IV PRN (10:50)
[2016-05-14] MEDS: LEVOFLOXACIN 750 MG/D5W RTU 150 ML IV SCH (10:51)
[2016-05-14] MEDS: DOCUSATE SODIUM 100 MG CAPSULE PO SCH ×2 (10:52→17:17)
[2016-05-14] MEDS: DULOXETINE HCL 30 MG CAPSULE.DR PO SCH ×2 (10:52→17:17)
[2016-05-14] MEDS: LISINOPRIL 10 MG TABLET PO SCH ×2 (10:52→21:28)
[2016-05-14] MEDS: GUAIFENESIN 600 MG TABLET.SA PO SCH ×2 (10:52→21:28)
[2016-05-14 12:30] LABS: APPEARANCE,URINE CLEAR; BILIRUBIN,URINE NEGATIVE (NEGATIVE); GLUCOSE, URINE NEGATIVE (NEGATIVE); KETONES,URINE NEGATIVE (NEGATIVE); LEUKOCYTE ESTERASE,URINE NEGATIVE (NEGATIVE); NITRITE,URINE NEGATIVE (NEGATIVE); PROTEIN,URINE NEGATIVE (NEGATIVE); URINE SPECIFIC GRAVITY 1.004; UROBILINOGEN,URINE NEGATIVE mg/dL (<2.0)
--- NOTE | 2016-05-14 14:25 | PDOC PROGRESS REPORT ---
Subjective Progress Note for:: 05/14/16 Subjective:: Patient seen earlier today on morning rounds. Patient reports that she's feeling much better than yesterday. He is still somewhat short of breath. Patient denies chest pain, abdominal pain, nausea, vomiting, fevers, chills, diarrhea, constipation, headache, new onset weakness. Physical Exam Vital Signs: Temp Pulse Resp BP Pulse Ox 97.9 F 73 20 155/72 H 94 05/13/16 23:47 05/14/16 04:18 05/14/16 04:18 05/13/16 23:47 05/14/16 04:18 Intake & Output 05/13/16 05/14/16 05/15/16 06:59 06:59 06:59 Intake Total 2103 2176 Output Total 450 800 Balance 1653 1376 Weight 54.9 kg 59 kg Exam: General: Awake alert and oriented x3, no acute respiratory distress HEENT: AT/NC, PERRL, EOMI, oropharynx is moist, pink, no scleral icterus, no conjunctival injection Neck: No JVD, trachea midline Chest: Rhonchi bilateral bibasilar CV: Regular rate and rhythm, normal S1 and S2, no rub or gallop; 2/6 sm apex Abdomen: Soft, nontender to palpation, nondistended, active bowel sounds; no rebound, rigidity, or guarding Extremities: No cyanosis, clubbing or edema Neuro: Cranial nerves II through XII are intact without focal deficits; awake alert and oriented x3; strength 5/5 bilateral upper and lower extremities Psych: Depressed mood, normal affect Results Laboratory Results: 05/14/16 04:37 05/14/16 04:37 05/13/16 05/13/16 05/14/16 10:39 12:45 04:37 WBC 13.4 H RBC 2.75 L Hgb 9.0 L Hct 26.9 L MCV 98 H MCH 32.8 MCHC 33.6 RDW 14.2 H Plt Count 161 Seg Neutrophils % Not Reportable Lymphocytes % Not Reportable Monocytes % Not Reportable Eosinophils % Not Reportable Basophils % Not Reportable Absolute Neutrophils Not Reportable Absolute Lymphocytes Not Reportable Absolute Monocytes Not Reportable Absolute Eosinophils Not Reportable Absolute Basophils Not Reportable Sodium Potassium Chloride Carbon Dioxide Anion Gap BUN Creatinine Est GFR ( Amer) Est GFR (Non-Af Amer) Glucose Calcium Stool Occult Blood NEGATIVE Blood Type O NEGATIVE Antibody Screen NEGATIVE 05/14/16 04:37 WBC RBC Hgb Hct MCV MCH MCHC RDW Plt Count Seg Neutrophils % Lymphocytes % Monocytes % Eosinophils % Basophils % Absolute Neutrophils Absolute Lymphocytes Absolute Monocytes Absolute Eosinophils Absolute Basophils Sodium 142.1 Potassium 4.0 Chloride 110 H Carbon Dioxide 20 L Anion Gap 12 BUN 27 H Creatinine 0.81 Est GFR ( Amer) > 60 Est GFR (Non-Af Amer) > 60 Glucose 150 H Calcium 9.1 Stool Occult Blood Blood Type Antibody Screen 05/12/16 05/12/16 05/13/16 18:35 18:35 00:27 Creatine Kinase 255 H CK-MB (CK-2) 4.24 Troponin I 2.350 1.350 Impressions: Chest X-Ray 05/12/16 13:52 IMPRESSION: NO ACUTE RADIOGRAPHIC FINDING IN THE CHEST. Head CT 05/13/16 00:00 IMPRESSION: CHRONIC CHANGES OF ATROPHY AND MICROVASCULAR ISCHEMIA. NO ACUTE PROCESS. Assessment & Plan - Diagnosis (1) Sepsis Qualifiers: Sepsis type: sepsis due to unspecified organism Qualified Code(s): A41.9 - Sepsis, unspecified organism Is this a current diagnosis for this admission?: YesPlan: Patient with underlying pneumonia clinically though nothing present on chest x- ray. Patient on Levaquin and cefepime. Maintain a map greater than 65. (2) Acute hypoxemic respiratory failure Is this a current diagnosis for this admission?: YesPlan: Oxygen as needed and BiPAP to maintain saturation greater than 94% (3) Pneumonia Qualifiers: Pneumonia type: due to unspecified organism Laterality: right Lung location: lower lobe of lung Qualified Code(s): J18.1 - Lobar pneumonia, unspecified organism Is this a current diagnosis for this admission?: YesPlan: On cefepime and Levaquin day #3. Incentive spirometry and flutter valve. Patient has COPD. Decrease Solu-Medrol. Influenza negative. Concern for this time for gram-negative pneumonia as patient at this time describes significant dysphasia with eating and drinking. Particularly drinking thin liquids. Speech has been consulted. (4) NSTEMI (non-ST elevated myocardial infarction) Is this a current diagnosis for this admission?: YesPlan: Patient with a non-ST segment myocardial infarction. This was likely precipitated due to underlying disease which became symptomatic when patient was hypoxic. The extent this also appears to be exaggerated by her sepsis. Will obtain an echo. Appreciate cardiology input. Have discussed this case with Dr. BURKETT of cardiology. Patient not candidate for anticoagulation due to recent GI bleed. Increase metoprolol and lisinopril. (5) Acute loss of vision Qualifiers: Laterality: left Qualified Code(s): H53.132 - Sudden visual loss, left eye Is this a current diagnosis for this admission?: YesPlan: CT of the head is negative today. Patient also now states her other eye that she's having visual difficulties with. Most likely this is a progression of her underlying visual difficulties for which patient utilizes both prescription and xokr-lop-suxadqn glasses at the same time. Will place refresh eyedrops. On physical examination, patient's vision is blurred but still present. Patient has no pain and have considered acute glaucoma, but is unlikely. Concern for supratentorial causes in light of recent grief. (6) Duodenal ulcer due to nonsteroidal anti-inflammatory drug (NSAID) Is this a current diagnosis for this admission?: YesPlan: Occult blood is negative. Have held all anticoagulation due to risk of bleeding. Patient is not a candidate for initiation of heparin, Lovenox, or aspirin or Plavix for her non- STEMI. Patient on Carafate and Prevacid. (7) Tobacco abuse Is this a current diagnosis for this admission?: YesPlan: Nicotine patch when necessary (8) Hypertension Qualifiers: Hypertension type: essential hypertension Qualified Code(s): I10 - Essential (primary) hypertension Is this a current diagnosis for this admission?: YesPlan: Increase lisinopril and metoprolol (9) Depression Qualifiers: Depression Type: unspecified Qualified Code(s): F32.9 - Major depressive disorder, single episode, unspecified Is this a current diagnosis for this admission?: YesPlan: Continue home medications - Time Time Spent with patient: 25-34 minutes Medications reviewed and adjusted accordingly: Yes Anticipated discharge: Acute Rehab
[2016-05-14] MEDS ORDERED: ISOSORBIDE MONONITRATE 30 MG TAB.ER.24H PO ONE (16:00)
[2016-05-14] MEDS: ACETAMINOPHEN 325 MG TABLET PO PRN (19:55)
[2016-05-14] MEDS: SENNOSIDES/DOCUSATE 8.6-50 MG 1 EACH TABLET PO SCH (21:27)
[2016-05-14] MEDS: TEMAZEPAM 15 MG CAPSULE PO PRN (21:31)
--- NOTE | 2016-05-14 21:43 | PROGRESS NOTE E ---
Progress Note NAME: MARY JANE CABA : 1940 AGE: 76Y DATE: 05/14/2016 ROOM: 303 SUBJECTIVE: The patient denies any chest pain but she is still slightly shortness of breath but this has improved. She still has orthopnea but no PND. There are no palpitations. There is no arrhythmia seen on the monitor. She patient states that she has a history of cancerous laryngeal polyp removed in the past and since then her voice has been hoarse. She is having a cough, but is not able to bring up any sputum. There is no pedal edema. Earlier this morning her blood pressure was 183/84 and the patient was given IV hydralazine and subsequently her blood pressure came down to 154/74. OBJECTIVE: GENERAL: On examination the patient is not in any distress, but does appear to be slightly short of breath. She is well built but looks chronically ill. VITAL SIGNS: She is afebrile, at 12 noon her temperature was 97.6, and her pulse was 84 beats per minute, blood pressure was 154/74, respirations are 20 per minute, O2 saturations were 99% on 1 L nasal cannula. HEENT: Head is atraumatic, normocephalic. Eyes: Pupils are equal, round, regular, and reactive to light and accommodation. Extraocular movements are normal. There is no conjunctival pallor. There is no scleral icterus. ENT is negative. NECK: Supple. There is no JVD. Carotids are equal. There is no bruit. There is no lymphadenopathy. There is no goiter. Trachea is central. LUNGS: Show diminished air entry and prolonged expiration. There are harsh breath sounds. There are a few dry crackles in the right lower lobe suggestive of pneumonia. HEART: S1, S2 is heard. There is no S3 gallop. There is no S4 gallop. There is a systolic murmur in left sternal border at the apex. There is no diastolic murmur. There is no rub. ABDOMEN: Soft, nontender. There is no hepatosplenomegaly. Bowel sounds are well heard. There is no rebound, guarding, rigidity, or tenderness. EXTREMITIES: Femorals are diminished. There are no femoral bruits. Leg pulses are diminished. There is no DVT or cellulitis. There is no calf tenderness. There is no cyanosis or clubbing. CENTRAL NERVOUS SYSTEM: The patient is conscious, awake, alert, oriented x3 with no focal deficits. PSYCHIATRIC: At present, the patient does not appear to be anxious or depressed. Her judgment and insight are intact. DIAGNOSTIC DATA: The patient's EKG shows sinus rhythm, probably left atrial abnormality, left ventricular hypertrophy with IVCD. The T-waves are upright and there is no evidence of T-wave inversion in this present EKG. The patient's white count is 13,400; hemoglobin is 9; hematocrit is 26.9; platelet count is 161,000. The patient's sodium is 142.1, potassium 4.0, chloride 110, CO2 is 20. The patient's BUN is 27, creatinine 0.81, GFR is greater than 60. Her glucose is 150 and her calcium is 9.1. Troponin I has trended down to 1.010. IMPRESSION: 1. ELEVATED TROPONIN I SECONDARY MOST LIKELY TO HYPOXEMIA, RESOLVED WHEN THE *------* BACK WITH T-WAVE INVERSION WHEN SHE WAS HYPOXIC RESOLVED AND T-WAVE BECAME UPRIGHT. 2. ABNORMAL ELECTROCARDIOGRAM WITH T-WAVE INVERSION WHEN THE PATIENT WAS HYPOXEMIC, RESOLVED WHEN THE PATIENT'S OXYGEN SATURATION CAME UP. 3. MOST LIKELY THIS IS THE TROPONIN ELEVATION SECONDARY TO SUPPLY DEMAND MISMATCH AND NOT A NON-ST ELEVATION MYOCARDIAL INFARCTION, BUT THE PATIENT DOES HAVE SOME RISK FACTOR SUCH AGE, HYPERTENSION, SMOKING, AND ? LIPID LEVEL. THE PATIENT DOES NOT WANT TO BE TREATED AGGRESSIVELY. 4. RIGHT LOWER LOBE PNEUMONIA CLINICALLY. 5. CHRONIC OBSTRUCTIVE PULMONARY DISEASE WITH ACUTE EXACERBATION, IMPROVING BUT STILL NOT BACK TO BASELINE. 6. HYPERTENSION, BLOOD PRESSURE WAS UP BUT NOW WITH HYDRALAZINE THE BLOOD PRESSURE HAS COME DOWN, BUT NEEDS FURTHER INCREASE IN HER BLOOD PRESSURE MEDICATION. 7. DEPRESSION. 8. HISTORY OF ARTHRITIS. 9. TOBACCO ABUSE. 10. CHRONIC BACK PAIN. RECOMMENDATIONS: Note continue treatment with antibiotics and anti-COPD medication. I feel that even though the first chest x-ray did not show an infiltrate, clinically the patient has a right lower lobe pneumonia. Note the patient has a past history of large duodenal ulcer and unsafe to put the patient on aspirin or Plavix. Note that the patient has significant COPD and the patient continues to smoke and I anticipate that the patient is going to have hypoxemic episode, hence, would start the patient on Imdur 30 mg p.o. daily. The patient is not interested in getting an outpatient Lexiscan Cardiolite echocardiogram and has not yet been done. Since the patient does not want to be treated aggressively we will just add the Imdur and continue her other medications and we will sign off the case. Discussed this with Dr. Arellano, the hospitalist, taking care of the patient. Please call us back if our services are needed. TIME SPENT: Note 30 minutes spent on this patient with more than 50% of the time spent on direct patient care and discussions with the patient. The patient was seen from 1:15 p.m. to 1:45 p.m. on 05/14/2016. DICTATING PHYSICIAN: BREE NEVILLE M.D. [id number] RENETTA#: [id number] ID: [id number] JOB#: [id number] ACCT: [id number] cc: >
--- NOTE | 2016-05-15 00:08 | EKG REPORT ---
SEVERITY:- ABNORMAL ECG - SINUS RHYTHM PROBABLE LEFT ATRIAL ABNORMALITY LVH WITH IVCD, LAD AND SECONDARY REPOL ABNRM LATERAL INFARCT, AGE INDETERMINATE ANTEROSEPTAL PR AGE INDETERMINATE : Confirmed by: Jazzmine Gutierrez 15-May-2016 00:07:37
[2016-05-15] MEDS: METHYLPREDNISOLONE INJ 40 MG/1 ML SDV IV SCH (05:32)
[2016-05-15] MEDS: GABAPENTIN 300 MG CAPSULE PO SCH ×3 (05:32→22:00)
[2016-05-15 05:52] LABS: ABSOLUTE LYMPHOCYTES (AUTO) 0.7 10^3/uL (0.5-4.7); ABSOLUTE MONOCYTES (AUTO) 0.9 10^3/uL (0.1-1.4); ABSOLUTE NEUT (AUTO) 10.8 10^3/uL (1.7-8.2); BASOPHILS % (AUTO) 0.1 % (0-2); HEMATOCRIT 26.4 % (36.0-47.0); HEMOGLOBIN 8.9 g/dL (12.0-15.5); HGB HCT DIFFERENCE 0.3; LYMPHOCYTES % (AUTO) 5.4 % (13-45); MEAN CORPUSCULAR HEMOGLOBIN 32.8 pg (27.0-33.4); MEAN CORPUSCULAR HGB CONC 33.7 g/dL (32.0-36.0); MEAN CORPUSCULAR VOLUME 97 fl (80-97); MONOCYTES % (AUTO) 7.6 % (3-13); RED BLOOD COUNT 2.71 10^6/uL (3.72-5.28); RED CELL DISTRIBUTION WIDTH 14.2 % (11.5-14.0); SEGMENTED NEUTROPHILS % (AUTO) 86.9 % (42-78); WHITE BLOOD COUNT 12.5 10^3/uL (4.0-10.5)
[2016-05-15 06:05] LABS: ANION GAP 13 (5-19); BLOOD UREA NITROGEN 36 mg/dL (7-20); CALCIUM 9.3 mg/dL (8.4-10.2); CARBON DIOXIDE 21 mmol/L (22-30); CHLORIDE 106 mmol/L (98-107); CREATININE RESULT 1.04 mg/dL (0.52-1.25); GLUCOSE 138 mg/dL (75-110); MAGNESIUM 1.4 mg/dL (1.6-2.3); POTASSIUM 4.1 mmol/L (3.6-5.0); SODIUM 139.5 mmol/L (137-145)
[2016-05-15] MEDS: SUCRALFATE SUSP 1 GM/10 ML UDCUP PO SCH ×4 (08:20→22:00)
[2016-05-15] MEDS ORDERED: MAGNESIUM SULFATE/D5W 1 GM/100 ML RTUPB IV ONE (08:20)
[2016-05-15] MEDS: CEFEPIME HCL 2 GM in DEXTROSE 5%-WATER 50 ML IV SCH ×2 (08:21→20:37)
[2016-05-15] MEDS: LANSOPRAZOLE 30 MG TAB.RAP.DR PO SCH ×2 (08:21→15:25)
[2016-05-15] MEDS: IPRATROPIUM/ALBUTEROL 0.5-2.5 MG/3 ML AMPUL NEB SCH ×4 (08:30→20:34)
[2016-05-15] MEDS: LEVOFLOXACIN 750 MG/D5W RTU 150 ML IV SCH (09:46)
[2016-05-15] MEDS: DOCUSATE SODIUM 100 MG CAPSULE PO SCH ×2 (09:48→17:53)
[2016-05-15] MEDS: MAGNESIUM SULFATE/D5W 1 GM/100 ML RTUPB IV SCH ×2 (09:48→09:50)
[2016-05-15] MEDS: METOPROLOL TARTRATE 25 MG TABLET PO SCH ×2 (09:48→22:00)
[2016-05-15] MEDS: DULOXETINE HCL 30 MG CAPSULE.DR PO SCH ×2 (09:49→17:53)
[2016-05-15] MEDS: GUAIFENESIN 600 MG TABLET.SA PO SCH ×2 (09:49→22:00)
[2016-05-15] MEDS: LISINOPRIL 10 MG TABLET PO SCH ×2 (09:49→22:00)
[2016-05-15] MEDS ORDERED: ISOSORBIDE MONONITRATE 30 MG TAB.ER.24H PO SCH ×2 (10:00→10:23)
[2016-05-15] MEDS ORDERED: PREDNISONE 20 MG TABLET PO ONE (11:30)
[2016-05-15] MEDS ORDERED: FUROSEMIDE INJ/PF 20 MG/2 ML SDV IV ONE (11:30)
[2016-05-15] MEDS ORDERED: ISOSORBIDE MONONITRATE 60 MG TAB.ER.24H PO ONE (12:00)
--- NOTE | 2016-05-15 13:22 | PDOC PROGRESS REPORT ---
Subjective Progress Note for:: 05/15/16 Subjective:: Patient seen earlier today on morning rounds. Patient reports that she's feeling much better than yesterday. She was able to ambulate with physical therapy today with minimal assistance. Patient denies chest pain, abdominal pain, nausea, vomiting, fevers, chills, diarrhea, constipation, headache, new onset weakness. Physical Exam Vital Signs: Temp Pulse Resp BP Pulse Ox 97.3 F 64 20 162/72 H 99 05/15/16 04:02 05/15/16 07:00 05/15/16 04:02 05/15/16 04:02 05/15/16 04:02 Intake & Output 05/14/16 05/15/16 05/16/16 06:59 06:59 06:59 Intake Total 2176 1759 Output Total 800 400 Balance 1376 1359 Weight 59 kg 58.7 kg Exam: General: Awake alert and oriented x3, no acute respiratory distress HEENT: AT/NC, PERRL, EOMI, oropharynx is moist, pink, no scleral icterus, no conjunctival injection Neck: No JVD, trachea midline Chest: Occasional, light rhonchi bilateral bibasilar CV: Regular rate and rhythm, normal S1 and S2, no rub or gallop; 2/6 sm apex Abdomen: Soft, nontender to palpation, nondistended, active bowel sounds; no rebound, rigidity, or guarding Extremities: No cyanosis, clubbing or edema Neuro: Cranial nerves II through XII are intact without focal deficits; awake alert and oriented x3 Psych: Depressed mood, normal affect Results Laboratory Results: 05/15/16 05:11 05/15/16 05:11 05/14/16 05/15/16 05/15/16 12:15 05:11 05:11 WBC 12.5 H RBC 2.71 L Hgb 8.9 L Hct 26.4 L MCV 97 MCH 32.8 MCHC 33.7 RDW 14.2 H Plt Count 168 Seg Neutrophils % 86.9 H Lymphocytes % 5.4 L Monocytes % 7.6 Eosinophils % 0.0 Basophils % 0.1 Absolute Neutrophils 10.8 H Absolute Lymphocytes 0.7 Absolute Monocytes 0.9 Absolute Eosinophils 0.0 Absolute Basophils 0.0 Sodium 139.5 Potassium 4.1 Chloride 106 Carbon Dioxide 21 L Anion Gap 13 BUN 36 H Creatinine 1.04 Est GFR ( Amer) > 60 Est GFR (Non-Af Amer) 51 L Glucose 138 H Calcium 9.3 Magnesium 1.4 L Urine Color COLORLESS Urine Appearance CLEAR Urine pH 5.0 Ur Specific [place] 1.004 Urine Protein NEGATIVE Urine Glucose (UA) NEGATIVE Urine Ketones NEGATIVE Urine Blood SMALL H Urine Nitrite NEGATIVE Ur Leukocyte Esterase NEGATIVE Urine WBC (Auto) 0 Urine RBC (Auto) 0 05/12/16 05/12/16 05/13/16 18:35 18:35 00:27 Creatine Kinase 255 H CK-MB (CK-2) 4.24 Troponin I 2.350 1.350 05/14/16 11:37 Creatine Kinase CK-MB (CK-2) Troponin I 1.010 Impressions: Chest X-Ray 05/12/16 13:52 IMPRESSION: NO ACUTE RADIOGRAPHIC FINDING IN THE CHEST. Head CT 05/13/16 00:00 IMPRESSION: CHRONIC CHANGES OF ATROPHY AND MICROVASCULAR ISCHEMIA. NO ACUTE PROCESS. Assessment & Plan - Diagnosis (1) Chronic obstructive pulmonary disease with acute lower respiratory infection Is this a current diagnosis for this admission?: YesPlan: Patient with known COPD and ongoing pneumonia with COPD exacerbation. Continue scheduled nebulized treatments. Transition from Solu-Medrol to oral prednisone. (2) Sepsis Qualifiers: Sepsis type: sepsis due to unspecified organism Qualified Code(s): A41.9 - Sepsis, unspecified organism Is this a current diagnosis for this admission?: YesPlan: Patient with underlying pneumonia clinically though nothing present on chest x- ray. Patient on Levaquin and cefepime. Maintain a map greater than 65. (3) Acute hypoxemic respiratory failure Is this a current diagnosis for this admission?: YesPlan: Oxygen as needed and BiPAP to maintain saturation greater than 94% (4) Pneumonia Qualifiers: Pneumonia type: due to unspecified organism Laterality: right Lung location: lower lobe of lung Qualified Code(s): J18.1 - Lobar pneumonia, unspecified organism Is this a current diagnosis for this admission?: YesPlan: On cefepime and Levaquin day #4. Incentive spirometry and flutter valve. Influenza negative. Patient with gram-positive cocci in her blood culture pending identification. Continue IV antibiotics until this time. Concern for this time for gram-negative pneumonia as patient at this time describes significant dysphasia with eating and drinking. Particularly drinking thin liquids. Speech has been consulted. (5) NSTEMI (non-ST elevated myocardial infarction) Is this a current diagnosis for this admission?: YesPlan: Patient with a non-ST segment myocardial infarction. This was likely precipitated due to underlying disease which became symptomatic when patient was hypoxic. The extent this also appears to be exaggerated by her sepsis. Will obtain an echo. Appreciate cardiology input. Patient not candidate for anticoagulation due to recent GI bleed. Improved control on and will increase metoprolol and lisinopril as tolerated. Patient also on Imdur. No chest pain. (6) Acute loss of vision Qualifiers: Laterality: left Qualified Code(s): H53.132 - Sudden visual loss, left eye Is this a current diagnosis for this admission?: YesPlan: CT of the head is negative. Most likely this is a progression of her underlying visual difficulties for which patient utilizes both prescription and over-the- counter glasses at the same time. On physical examination, patient's vision is blurred but still present. Patient has no pain and have considered acute glaucoma, but is unlikely. Concern for supratentorial causes in light of recent grief. (7) Duodenal ulcer due to nonsteroidal anti-inflammatory drug (NSAID) Is this a current diagnosis for this admission?: YesPlan: Occult blood is negative. Have held all anticoagulation due to risk of bleeding. Patient is not a candidate for initiation of heparin, Lovenox, or aspirin or Plavix for her non- STEMI. Patient on Carafate and Prevacid. (8) Tobacco abuse Is this a current diagnosis for this admission?: YesPlan: Nicotine patch when necessary (9) Hypertension Qualifiers: Hypertension type: essential hypertension Qualified Code(s): I10 - Essential (primary) hypertension Is this a current diagnosis for this admission?: YesPlan: Increase lisinopril and metoprolol as tolerated today. Have also increased Imdur. (10) Depression Qualifiers: Depression Type: unspecified Qualified Code(s): F32.9 - Major depressive disorder, single episode, unspecified Is this a current diagnosis for this admission?: YesPlan: Continue home medications - Time Time Spent with patient: 25-34 minutes Medications reviewed and adjusted accordingly: Yes Anticipated discharge: Home with Homehealth Within: within 48 hours
[2016-05-15] MEDS: ACETAMINOPHEN 325 MG TABLET PO PRN (17:53)
[2016-05-15] MEDS: PREDNISONE 20 MG TABLET PO SCH (17:54)
[2016-05-15] MEDS: SENNOSIDES/DOCUSATE 8.6-50 MG 1 EACH TABLET PO SCH (22:00)
[2016-05-15] MEDS: TEMAZEPAM 15 MG CAPSULE PO PRN (22:03)
[2016-05-16] MEDS: HYDRALAZINE HCL INJ/PF 20 MG/1 ML SDV IV PRN (04:21)
[2016-05-16 04:48] LABS: ABSOLUTE LYMPHOCYTES (AUTO) 0.9 10^3/uL (0.5-4.7); ABSOLUTE NEUT (AUTO) 8.5 10^3/uL (1.7-8.2); BASOPHILS % (AUTO) 0.1 % (0-2); HEMATOCRIT 26.9 % (36.0-47.0); HEMOGLOBIN 9.2 g/dL (12.0-15.5); HGB HCT DIFFERENCE 0.7; LYMPHOCYTES % (AUTO) 9.1 % (13-45); MEAN CORPUSCULAR HEMOGLOBIN 33.2 pg (27.0-33.4); MEAN CORPUSCULAR HGB CONC 34.3 g/dL (32.0-36.0); MEAN CORPUSCULAR VOLUME 97 fl (80-97); RED BLOOD COUNT 2.77 10^6/uL (3.72-5.28); SEGMENTED NEUTROPHILS % (AUTO) 80.8 % (42-78); WHITE BLOOD COUNT 10.5 10^3/uL (4.0-10.5)
[2016-05-16 05:14] LABS: ANION GAP 9 (5-19); BLOOD UREA NITROGEN 36 mg/dL (7-20); CALCIUM 9.2 mg/dL (8.4-10.2); CARBON DIOXIDE 25 mmol/L (22-30); CHLORIDE 102 mmol/L (98-107); GLUCOSE 131 mg/dL (75-110); MAGNESIUM 1.9 mg/dL (1.6-2.3); SODIUM 136.2 mmol/L (137-145)
[2016-05-16] MEDS: GABAPENTIN 300 MG CAPSULE PO SCH ×3 (06:12→21:20)
[2016-05-16] MEDS: IPRATROPIUM/ALBUTEROL 0.5-2.5 MG/3 ML AMPUL NEB SCH ×4 (07:48→19:43)
[2016-05-16] MEDS: LANSOPRAZOLE 30 MG TAB.RAP.DR PO SCH ×2 (08:18→16:12)
[2016-05-16] MEDS: CEFEPIME HCL 2 GM in DEXTROSE 5%-WATER 50 ML IV SCH (08:18)
[2016-05-16] MEDS: SUCRALFATE SUSP 1 GM/10 ML UDCUP PO SCH ×4 (08:18→21:18)
[2016-05-16] MEDS: ACETAMINOPHEN 325 MG TABLET PO PRN ×2 (08:34→20:23)
--- NOTE | 2016-05-16 09:18 | ST Inp Modified Barium Swallow ---
Medical Diagnosis - Medical Diagnoses Medical Diagnosis Description & ICD-10 Code(s): s/sx of aspiration - ICD-10 Tx Diagnosis Coding (1) Dysphagia, oropharyngeal phase ICD-10 Code(s): R13.12 - DYSPHAGIA, OROPHARYNGEAL PHASE (2) Dysphagia, pharyngeal phase ICD-10 Code(s): R13.13 - DYSPHAGIA, PHARYNGEAL PHASE ST Inpatient [facility] [place] - General Date: 05/16/16 Date of Onset: 05/12/16 - History History Obtained From: Patient - per EMR -: Medical - per EMR; sepsis, PNA, fever, chills, SOB, acute hypoxemic respiratory failure, elevated troponin, HTN, COPD. MD order ST evaluation due to concerns for dysphagia. Chest xrays shows WNL. PMHx: HTN, chronic back pain, COPD, depression, current tobacco use, arthritis, GI bleed. Medications: Medications Reviewed Allergies: Refer to medical record - Subjective Current Nutritional Means: PO Current PO Diet: Mechanical - cut Current Symptoms: Coughing, Pneumonia Pain: 0/5 - Objective Assessment: Upright, Left Lateral - Food Trials Food Trials Used: Thin liquids, [place] thick liquids, Pureed, Soft solids The Patient: Was Able to Self Feed - Assessment Labial Function: Within Functional Limits Lingual Function: Within Functional Limits Mandibular Function: Within Functional Limits - mildly weak Dentition: Partial, Dentures-Upper - not present Velo-Pharyngeal Function: Unremarkable Laryngeal Function: Weak Cough, weak voicing, hoarse - Pharyngeal Stage Initiation of Pharyngeal Stage: Normal Decreased Laryngeal Elevation: No - mild Reduced Velo-Pharyngeal Closure: no Reduced Pressure Generation: Yes - mild-moderate Reduced Tongue Base Retraction: Yes - moderate Pre-Swallowing Pooling in Valleculae: None Pre-Swallowing Pooling in Pyriforms: None Reduced Thyro-Hyiod Approximation: Yes - mild-moderate Reduced Epiglottic Excursion: Yes - mild Reduced Pharyngeal Peristalsis: No Multiple Swallows With: Cleared w/ Liquid Assist Post Swallow Residuals in Valleculae: Moderate - mild on puree and nectar thick liquids, mild-moderate on soft solids Post Swallow Residuals in Pyriforms: Mild - trace on puree and soft solids, trace to mild on nectar thick liquids - Impression/Summary Laryngeal Penetration: Yes, Deep - on thin and nectar Tracheal Aspiration: yes - on large sips of thin liquids, deep, delayed cough, during swallow Patient Presents With: Pharyngeal stage dysph., Oral-Pharyngeal dysph., Mild- Moderate Risk of Aspiration: Moderate - Recommendations NPO: no Solid Diet Recommendations: Mechanical Soft, Chopped Meat Liquid Diet Recommendations: Thin Strict Aspitarion Precautions: Yes Dysphagia Therapy with SILK SPOOLER: Yes, Inpatient, Discharge Recommended Techniques: Fully Upright During Meal, Small Bites and Sips, Alternate Bites/Sips Supervision: Independent Other Recommendations: 1) Recommend continued current diet of mechanical soft cut meats and thin liquids. 2) Thin liquids by small cup sips only, No straws. 3) Alternate bites and sips. 4) Acute care ST to treat x2 a week for dysphagia. Recommend ST after discharge. SUMMARY: Pt observed to have deep penetration with thin and nectar consistencies. Aspiration observed on large sips of thin with weak ineffective delayed cough. Residuals observed at the level of the valleculae on solids, cleared with liquid assist. Pt denied globus sensation at times of radiographic evidence of residuals-indicating reduced pharyngeal sensation. Pt is at risk of aspiration due to moderate dysphagia, recommend aspiration precautions and safe feeding strategies. ST contacted MD regarding results and recommendations. - Time Total Time: 25 Total Timed Minutes: 0 [facility] [place] Impairment Category - Rationale Based On Rationale Based On: Clin Find., Obj Measures - Swallowing Current G8996: CK 40-59% Impaired Goal G8997: CJ 20-39% Impaired Discharge G8998: None
[2016-05-16] MEDS: PREDNISONE 20 MG TABLET PO SCH ×2 (10:39→17:30)
[2016-05-16] MEDS: DULOXETINE HCL 30 MG CAPSULE.DR PO SCH ×2 (10:40→17:31)
[2016-05-16] MEDS: METOPROLOL TARTRATE 25 MG TABLET PO SCH (10:40)
[2016-05-16] MEDS: LISINOPRIL 10 MG TABLET PO SCH ×2 (10:40→21:19)
[2016-05-16] MEDS: DOCUSATE SODIUM 100 MG CAPSULE PO SCH ×2 (10:40→17:30)
[2016-05-16] MEDS: GUAIFENESIN 600 MG TABLET.SA PO SCH ×2 (10:41→21:18)
[2016-05-16] MEDS: LEVOFLOXACIN 750 MG TABLET PO SCH (10:42)
[2016-05-16] MEDS: ISOSORBIDE MONONITRATE 60 MG TAB.ER.24H PO SCH (10:43)
--- NOTE | 2016-05-16 14:08 | PDOC PROGRESS REPORT ---
Subjective Progress Note for:: 05/16/16 Subjective:: Patient reports she's feeling better. She reports that she is tired. She reports that she has not had a bowel movement in 2 days. Patient denies chest pain, shortness of breath, abdominal pain, nausea, vomiting , fevers, chills, diarrhea, headache, new onset weakness. Physical Exam Vital Signs: Temp Pulse Resp BP Pulse Ox 97.9 F 77 22 H 148/66 H 99 05/16/16 07:21 05/16/16 07:21 05/16/16 07:21 05/16/16 07:21 05/16/16 07:21 Intake & Output 05/15/16 05/16/16 05/17/16 06:59 06:59 06:59 Intake Total 1759 1799 Output Total 400 1000 Balance 1359 799 Weight 58.7 kg 48.8 kg Exam: General: Awake alert and oriented x3, no acute respiratory distress HEENT: AT/NC, PERRL, EOMI, oropharynx is moist, pink, no scleral icterus, no conjunctival injection Neck: No JVD, trachea midline Chest: Occasional rhonchi bilateral bibasilar CV: Regular rate and rhythm, normal S1 and S2, no rub or gallop; 2/6 sm apex Abdomen: Soft, nontender to palpation, nondistended, active bowel sounds; no rebound, rigidity, or guarding Extremities: No cyanosis, clubbing or edema Neuro: Cranial nerves II through XII are intact without focal deficits; awake alert and oriented x3 Psych: Depressed mood, normal affect Results Laboratory Results: 05/16/16 04:11 05/16/16 04:11 05/16/16 05/16/16 04:11 04:11 WBC 10.5 RBC 2.77 L Hgb 9.2 L Hct 26.9 L MCV 97 MCH 33.2 MCHC 34.3 RDW 14.0 Plt Count 174 Seg Neutrophils % 80.8 H Lymphocytes % 9.1 L Monocytes % 10.0 Eosinophils % 0.0 Basophils % 0.1 Absolute Neutrophils 8.5 H Absolute Lymphocytes 0.9 Absolute Monocytes 1.0 Absolute Eosinophils 0.0 Absolute Basophils 0.0 Sodium 136.2 L Potassium 4.0 Chloride 102 Carbon Dioxide 25 Anion Gap 9 BUN 36 H Creatinine 1.10 Est GFR ( Amer) 58 L Est GFR (Non-Af Amer) 48 L Glucose 131 H Calcium 9.2 Magnesium 1.9 05/12/16 22:07 Sputum Gram Stain - Final 05/12/16 22:07 Sputum Sputum Culture - Final C.albicans/C.dubliniensis Normal [place] 05/12/16 05/12/16 05/13/16 18:35 18:35 00:27 Creatine Kinase 255 H CK-MB (CK-2) 4.24 Troponin I 2.350 1.350 05/14/16 11:37 Creatine Kinase CK-MB (CK-2) Troponin I 1.010 Impressions: Chest X-Ray 05/12/16 13:52 IMPRESSION: NO ACUTE RADIOGRAPHIC FINDING IN THE CHEST. Head CT 05/13/16 00:00 IMPRESSION: CHRONIC CHANGES OF ATROPHY AND MICROVASCULAR ISCHEMIA. NO ACUTE PROCESS. Assessment & Plan - Diagnosis (1) Chronic obstructive pulmonary disease with acute lower respiratory infection Is this a current diagnosis for this admission?: YesPlan: Patient with known COPD and ongoing pneumonia with COPD exacerbation. Continue scheduled nebulized treatments. On oral prednisone. (2) Sepsis Qualifiers: Sepsis type: sepsis due to unspecified organism Qualified Code(s): A41.9 - Sepsis, unspecified organism Is this a current diagnosis for this admission?: YesPlan: Resolved. Patient with underlying pneumonia clinically though nothing present on chest x- ray. Patient on Levaquin Maintain a map greater than 65. (3) Acute hypoxemic respiratory failure Is this a current diagnosis for this admission?: YesPlan: Oxygen as needed and BiPAP to maintain saturation greater than 94% (4) Pneumonia Qualifiers: Pneumonia type: due to unspecified organism Laterality: right Lung location: lower lobe of lung Qualified Code(s): J18.1 - Lobar pneumonia, unspecified organism Is this a current diagnosis for this admission?: YesPlan: Levaquin day #5. Incentive spirometry and flutter valve. Influenza negative. Sputum culture currently negative. Blood culture currently with contamination. Stop patient's cefepime today and if remains afebrile patient may likely be discharged to home tomorrow. (5) NSTEMI (non-ST elevated myocardial infarction) Is this a current diagnosis for this admission?: YesPlan: Patient with a non-ST segment myocardial infarction. This was likely precipitated due to underlying disease which became symptomatic when patient was hypoxic. The extent this also appears to be exaggerated by her sepsis. Will obtain an echo. Appreciate cardiology input. Patient not candidate for anticoagulation due to recent GI bleed. Improved control on and will increase metoprolol and lisinopril as tolerated. Patient also on Imdur. No chest pain. (6) Acute loss of vision Qualifiers: Laterality: left Qualified Code(s): H53.132 - Sudden visual loss, left eye Is this a current diagnosis for this admission?: YesPlan: CT of the head is negative. Most likely this is a progression of her underlying visual difficulties for which patient utilizes both prescription and over-the- counter glasses at the same time. On physical examination, patient's vision is blurred but still present. Patient has no pain and have considered acute glaucoma, but is unlikely. Concern for supratentorial causes in light of recent grief. will consult opthomology. (7) Duodenal ulcer due to nonsteroidal anti-inflammatory drug (NSAID) Is this a current diagnosis for this admission?: YesPlan: Occult blood is negative. Have held all anticoagulation due to risk of bleeding. Patient is not a candidate for initiation of heparin, Lovenox, or aspirin or Plavix for her non- STEMI. Patient on Carafate and Prevacid. (8) Tobacco abuse Is this a current diagnosis for this admission?: YesPlan: Nicotine patch when necessary (9) Hypertension Qualifiers: Hypertension type: essential hypertension Qualified Code(s): I10 - Essential (primary) hypertension Is this a current diagnosis for this admission?: YesPlan: Increase metoprolol today. Continue lisinopril and Imdur. Fair control. (10) Depression Qualifiers: Depression Type: unspecified Qualified Code(s): F32.9 - Major depressive disorder, single episode, unspecified Is this a current diagnosis for this admission?: YesPlan: Continue home medications - Time Time Spent with patient: 25-34 minutes Medications reviewed and adjusted accordingly: Yes
--- NOTE | 2016-05-16 19:06 | EKG REPORT ---
SEVERITY:- ABNORMAL ECG - SINUS RHYTHM PROBABLE LEFT ATRIAL ABNORMALITY LEFT AXIS DEVIATION LEFT VENTRICULAR HYPERTROPHY ANTERIOR Q WAVES, POSSIBLY DUE TO LVH : Confirmed by: Elvira Burger MD 16-May-2016 19:05:50
[2016-05-16] MEDS: METOPROLOL TARTRATE 50 MG TABLET PO SCH (21:19)
[2016-05-16] MEDS: RANOLAZINE 500 MG TAB.SR.12H PO SCH (21:19)
[2016-05-16] MEDS: SENNOSIDES/DOCUSATE 8.6-50 MG 1 EACH TABLET PO SCH (21:20)
[2016-05-16] MEDS: TEMAZEPAM 15 MG CAPSULE PO PRN (21:21)
--- NOTE | 2016-05-16 21:29 | XCELERA REPORT ---
[address] [address] Transthoracic Echocardiogram Report Name: MARY JANE CABA Age: 76 yrs Gender: Female : 1940 Patient Status: Inpatient Patient Location: [id number] Study Date: 05/16/2016 10:27 AM Height: 64 in Weight: 129 lb BSA: 1.6 m2 Procedure: A complete two-dimensional transthoracic echocardiogram was performed (2D, M-mode, spectral and color flow Doppler). The study was technically adequate with some images being suboptimal in quality. Reason For Study: nstemi Ordering Physician: MIGUELINA SELLERS Performed By: Klarissa Benjamin Interpretation Summary The left ventricular ejection fraction is normal. There is mild concentric left ventricular hypertrophy. Doppler measurements suggest pseudonormalized left ventricular relaxation, which is associated with grade II/IV or mild to moderate diastolic dysfunction The left ventricle is grossly normal size. Wall motion cannot be accurately commented on, but no definite regional wall motion abnormalities noted. The right ventricular systolic function is normal. The right atrium is normal in size The left atrial size is normal. There is no mitral valve stenosis. There is a mild amount of mitral regurgitation No aortic regurgitation is present. There is no aortic valve stenosis There is a trace or physiologic amount of tricuspid regurgitation Tricuspid regurgitation jet envelope not well defined to measure RV systolic pressure accurately. There is no pericardial effusion. MMode/2D Measurements \T\ Calculations RVDd: 2.6 cm LVIDd: 4.6 cm FS: 46.5 % Ao root diam: 2.6 cm IVSd: 1.2 cm LVIDs: 2.5 cm EDV(Teich): 98.3 ml LVPWd: 1.2 cm ESV(Teich): 21.7 ml Ao root area: 5.5 cm2 EF(Teich): 77.9 % LA dimension: 3.4 cm Doppler Measurements \T\ Calculations MV E max regine: MV P1/2t max regine: Ao V2 max: LV V1 max P.4 cm/sec 84.9 cm/sec 152.8 cm/sec 5.2 mmHg MV A max regine: MV P1/2t: 139.4 msec Ao max PG: LV V1 max: 68.6 cm/sec 9.3 mmHg 114.5 cm/sec MV E/A: 1.2 MVA(P1/2t): 1.6 cm2 MV dec slope: 178.4 cm/sec2 PA V2 max: TR max regine: 90.3 cm/sec 250.6 cm/sec PA max PG: TR max P.1 mmHg 3.3 mmHg Left Ventricle The left ventricle is grossly normal size. There is mild concentric left ventricular hypertrophy. The left ventricular ejection fraction is normal. Doppler measurements suggest pseudonormalized left ventricular relaxation, which is associated with grade II/IV or mild to moderate diastolic dysfunction. Wall motion cannot be accurately commented on, but no definite regional wall motion abnormalities noted. Right Ventricle The right ventricle is grossly normal size. There is normal right ventricular wall thickness. The right ventricular systolic function is normal. Atria The right atrium is normal in size. The left atrial size is normal. Interarterial septum not well visualized and not well dopplered. Cannot comment on ASD/PFO presence. Mitral Valve The mitral valve leaflets are sclerotic, but show no functional abnormalities. There is no mitral valve stenosis. There is a mild amount of mitral regurgitation. Aortic Valve The aortic valve is grossly normal. There is no aortic valve stenosis. No aortic regurgitation is present. Tricuspid Valve The tricuspid valve is not well visualized, but is grossly normal. There is no tricuspid stenosis. There is a trace or physiologic amount of tricuspid regurgitation. Tricuspid regurgitation jet envelope not well defined to measure RV systolic pressure accurately. Great Vessels The aortic root is not well visualized but is probably normal size. The inferior vena cava appeared normal and decreased > 50% with respiration (RAP 5-10 mmHg). Effusions There is no pericardial effusion. : MIGUELINA SELLERS > Jazzmine Gutierrez
--- NOTE | 2016-05-16 22:18 | PDOC PROGRESS REPORT ---
Subjective Progress Note for:: 05/16/16 Subjective:: Patient is a reconsult because of chest pain. I was called at around 3 PM by the nurse that patient was having chest pain. Patient described the chest pain is located in the central chest. She was not able to describe it in more detail. There was no associated symptoms. A 12-lead EKG was obtained which showed no new changes. Patient was admitted previously with chest pain and was noted to have positive troponin I. Currently she is DO NOT RESUSCITATE. She has multiple other comorbid diagnosis which are significant. Medical management is desired for this patient. Physical Exam Vital Signs: Temp Pulse Resp BP Pulse Ox 97.6 F 63 18 120/57 L 99 05/16/16 19:56 05/16/16 19:56 05/16/16 19:56 05/16/16 19:56 05/16/16 19:56 Intake & Output 05/15/16 05/16/16 05/17/16 06:59 06:59 06:59 Intake Total 1759 1799 745 Output Total 400 1000 Balance 1359 799 745 Weight 58.7 kg 48.8 kg Exam: GENERAL: well-nourished and in no acute distress. Alert and oriented x3 HEAD: Atraumatic, normocephalic. EYES: Pupils equal round and reactive to light, extraocular movements intact, sclera anicteric, conjunctiva are normal. ENT: TMs normal, nares patent, oropharynx clear without exudates. Moist mucous membranes. No oral ulcerations or bleeding gums noted NECK: supple without lymphadenopathy. Trachea is central. No cervical or axillary lymphadenopathy noted. Carotids are 2+, JVD WNL LUNGS: Respiration seems nonlabored, no significant accessory muscle action noted. Breath sounds clear to auscultation bilaterally and equal noted. No wheezes rales or rhonchi noted. No significant dullness noted on percussion. CHEST: Palpation of the chest wall shows no significant chest wall tenderness. No other significant abnormalities noted. HEART: [place] [place] HEAD, No PSH, 1/6 ERIC aortic area, 1/6 jaramillo systolic murmur mitral area, no rubs, no gallops. ABDOMEN: Soft, no significant tenderness appreciated, normoactive bowel sounds. No guarding, no rebound. No rigidity noted . No masses appreciated. EXTREMITIES: Pedal pulses are 1-2+, no calf tenderness noted. No clubbing or cyanosis.trace pedal edema noted NEUROLOGICAL: Focused neurological exam showed no significant neurologic deficit. Normal speech, no focal weakness appreciated. PSYCH: Normal mood, normal affect. Judgment and insight within normal limits. SKIN: No significant ecchymosis, rash, ulcerations or signs of pruritus noted. MUSCULOSKELETAL EXAM: No significant joint swelling noted. Results Laboratory Results: 05/16/16 04:11 05/16/16 04:11 05/16/16 05/16/16 04:11 04:11 WBC 10.5 RBC 2.77 L Hgb 9.2 L Hct 26.9 L MCV 97 MCH 33.2 MCHC 34.3 RDW 14.0 Plt Count 174 Seg Neutrophils % 80.8 H Lymphocytes % 9.1 L Monocytes % 10.0 Eosinophils % 0.0 Basophils % 0.1 Absolute Neutrophils 8.5 H Absolute Lymphocytes 0.9 Absolute Monocytes 1.0 Absolute Eosinophils 0.0 Absolute Basophils 0.0 Sodium 136.2 L Potassium 4.0 Chloride 102 Carbon Dioxide 25 Anion Gap 9 BUN 36 H Creatinine 1.10 Est GFR ( Amer) 58 L Est GFR (Non-Af Amer) 48 L Glucose 131 H Calcium 9.2 Magnesium 1.9 05/14/16 12:15 Clean Catch Midstream Urine Culture - Final NO GROWTH 2 DAYS 05/12/16 05/12/16 05/13/16 18:35 18:35 00:27 Creatine Kinase 255 H CK-MB (CK-2) 4.24 Troponin I 2.350 1.350 05/14/16 11:37 Creatine Kinase CK-MB (CK-2) Troponin I 1.010 Impressions: Chest X-Ray 05/12/16 13:52 IMPRESSION: NO ACUTE RADIOGRAPHIC FINDING IN THE CHEST. Head CT 05/13/16 00:00 IMPRESSION: CHRONIC CHANGES OF ATROPHY AND MICROVASCULAR ISCHEMIA. NO ACUTE PROCESS. Modified Barium Swallow 05/16/16 00:00 IMPRESSION: TRACHEAL ASPIRATION WITH THIN LIQUIDS. DEEP LARYNGEAL PENETRATION WITH THIN AND NECTAR CONSISTENCIES.PLEASE SEE SPEECH PATHOLOGIST REPORT FOR OTHER FINDINGS AND RECOMMENDATIONS. Assessment & Plan - Diagnosis (1) Chest pain Qualifiers: Chest pain type: unspecified Qualified Code(s): R07.9 - Chest pain, unspecified Is this a current diagnosis for this admission?: Yes (2) NSTEMI (non-ST elevated myocardial infarction) Is this a current diagnosis for this admission?: Yes (3) Hypertension Qualifiers: Hypertension type: essential hypertension Qualified Code(s): I10 - Essential (primary) hypertension Is this a current diagnosis for this admission?: Yes (4) COPD (chronic obstructive pulmonary disease) Qualifiers: COPD type: unspecified COPD Qualified Code(s): J44.9 - Chronic obstructive pulmonary disease, unspecified Is this a current diagnosis for this admission?: Yes - Notes Notes: Chest pain: 2-D echocardiogram reviewed. It showed normal LVEF. Twelve-lead EKG showed no new changes. Chest pain spontaneously resolved. At this point have optimize medical management. Believe that patient has underlying significant CAD but medical management as desired. Have placed patient on Ranexa 500 mg by mouth twice a day. Continue with Imdur, statin, antiplatelet therapy. Non-STEMI: Exact etiology not clear but possible ACS in view of chest pain and positive troponin I. However medical management is desired. Will try to optimize medical therapy. As noted from hospitalist note that anticoagulation is somewhat contraindicated. Hypertension: Reasonably well controlled. Blood pressure goal in this patient is 135/85 or less. This was discussed with the patient. Currently blood pressure under reasonable control. Better medication for this patient are ANGELLA inhibitor/ARB/beta farida etc. discussed side effects of uncontrolled hypertension and also severe hypotension. COPD: Patient seems to have a significant CAD. Continue current management plans. Patient should avoid smoking. Patient's medical regimen was optimized. Patient is to continued on Imdur at 60. Have added Ranexa 500 mg by mouth twice a day. Twelve-lead EKG obtained stat was reviewed. It showed no significant changes. Patient chest pain it seems resolved by itself in about 15 minutes - Time Time with patient: Greater than 35 minutes - CCODE STATUS : was discussed, patient remains DO NOT RESUSCITATE. Surrogate decision-maker unchanged. Multiple medical problems were addressed. Multiple medical problems were addressed.More than 50% of the time spent coordinating care, discussing management plans with involved caregivers. Management plans discussed with involved personnels. Medical decision making was of moderate complexity. Medications reviewed and adjusted accordingly: Yes
[2016-05-17] MEDS: GABAPENTIN 300 MG CAPSULE PO SCH (05:15)
[2016-05-17 05:58] LABS: ABSOLUTE BASOPHILS # (AUTO) 0.1 10^3/uL (0.0-0.2); ABSOLUTE LYMPHOCYTES (AUTO) 2.1 10^3/uL (0.5-4.7); ABSOLUTE NEUT (AUTO) 6.2 10^3/uL (1.7-8.2); BASOPHILS % (AUTO) 0.6 % (0-2); EOSINOPHILS % (AUTO) 0.2 % (0-6); HEMATOCRIT 28.3 % (36.0-47.0); HEMOGLOBIN 9.7 g/dL (12.0-15.5); HGB HCT DIFFERENCE 0.8; MEAN CORPUSCULAR HGB CONC 34.3 g/dL (32.0-36.0); MEAN CORPUSCULAR VOLUME 96 fl (80-97); MONOCYTES % (AUTO) 19.1 % (3-13); RED BLOOD COUNT 2.94 10^6/uL (3.72-5.28); RED CELL DISTRIBUTION WIDTH 14.1 % (11.5-14.0); SEGMENTED NEUTROPHILS % (AUTO) 60.1 % (42-78); WHITE BLOOD COUNT 10.3 10^3/uL (4.0-10.5)
[2016-05-17 06:08] LABS: ANION GAP 8 (5-19); BLOOD UREA NITROGEN 32 mg/dL (7-20); CALCIUM 9.2 mg/dL (8.4-10.2); CARBON DIOXIDE 26 mmol/L (22-30); CHLORIDE 102 mmol/L (98-107); CREATININE RESULT 0.82 mg/dL (0.52-1.25); GLUCOSE 75 mg/dL (75-110); MAGNESIUM 1.8 mg/dL (1.6-2.3); POTASSIUM 4.2 mmol/L (3.6-5.0); SODIUM 136.3 mmol/L (137-145)
--- NOTE | 2016-05-17 07:43 | PDOC PROGRESS REPORT ---
Subjective Progress Note for:: 05/17/16 Subjective:: Patient is a reconsult because of chest pain yesterday. It spontaneously resolved. Patient's medical regimen was optimized. She denied any recurrence of chest pain since last episode yesterday afternoon. A 12-lead EKG was obtained which showed no new changes. Patient was admitted previously with chest pain and was noted to have positive troponin I. Currently she is DO NOT RESUSCITATE. She has multiple other comorbid diagnosis which are significant. Medical management is desired for this patient. Patient's medical regimen was optimized yesterday. She seems to be stable on that regimen. Physical Exam Vital Signs: Temp Pulse Resp BP Pulse Ox 97.6 F 58 L 14 131/59 H 100 05/17/16 03:27 05/17/16 07:00 05/17/16 03:27 05/17/16 03:27 05/17/16 03:27 Intake & Output 05/16/16 05/17/16 05/18/16 06:59 06:59 06:59 Intake Total 1799 1480 Output Total 1000 1000 Balance 799 480 Weight 48.8 kg 59.1 kg Exam: GENERAL: well-nourished and in no acute distress. Alert and oriented x3 HEAD: Atraumatic, normocephalic. EYES: Pupils equal round and reactive to light, extraocular movements intact, sclera anicteric, conjunctiva are normal. ENT: TMs normal, nares patent, oropharynx clear without exudates. Moist mucous membranes. No oral ulcerations or bleeding gums noted NECK: supple without lymphadenopathy. Trachea is central. No cervical or axillary lymphadenopathy noted. Carotids are 2+, JVD WNL LUNGS: Respiration seems nonlabored, no significant accessory muscle action noted. Breath sounds clear to auscultation bilaterally and equal noted. No wheezes rales or rhonchi noted. No significant dullness noted on percussion. CHEST: Palpation of the chest wall shows no significant chest wall tenderness. No other significant abnormalities noted. HEART: [place] [employer], No PSH, 1/6 ERIC aortic area, 1/6 jaramillo systolic murmur mitral area, no rubs, no gallops. ABDOMEN: Soft, no significant tenderness appreciated, normoactive bowel sounds. No guarding, no rebound. No rigidity noted . No masses appreciated. EXTREMITIES: Pedal pulses are 1-2+, no calf tenderness noted. No clubbing or cyanosis.trace to 1+ pedal edema noted NEUROLOGICAL: Focused neurological exam showed no significant neurologic deficit. Normal speech, no focal weakness appreciated. Patient has a rather raspy voice. PSYCH: Normal mood, normal affect. Judgment and insight within normal limits. SKIN: No significant ecchymosis, rash, ulcerations or signs of pruritus noted. MUSCULOSKELETAL EXAM: No significant joint swelling noted. Results Laboratory Results: 05/17/16 05:14 05/17/16 05:14 05/17/16 05/17/16 05:14 05:14 WBC 10.3 RBC 2.94 L Hgb 9.7 L Hct 28.3 L MCV 96 MCH 33.0 MCHC 34.3 RDW 14.1 H Plt Count 187 Seg Neutrophils % 60.1 Lymphocytes % 20.0 Monocytes % 19.1 H Eosinophils % 0.2 Basophils % 0.6 Absolute Neutrophils 6.2 Absolute Lymphocytes 2.1 Absolute Monocytes 2.0 H Absolute Eosinophils 0.0 Absolute Basophils 0.1 Sodium 136.3 L Potassium 4.2 Chloride 102 Carbon Dioxide 26 Anion Gap 8 BUN 32 H Creatinine 0.82 Est GFR ( Amer) > 60 Est GFR (Non-Af Amer) > 60 Glucose 75 Calcium 9.2 Magnesium 1.8 05/14/16 12:15 Clean Catch Midstream Urine Culture - Final NO GROWTH 2 DAYS 05/12/16 05/12/16 05/13/16 18:35 18:35 00:27 Creatine Kinase 255 H CK-MB (CK-2) 4.24 Troponin I 2.350 1.350 05/14/16 11:37 Creatine Kinase CK-MB (CK-2) Troponin I 1.010 Impressions: Chest X-Ray 05/12/16 13:52 IMPRESSION: NO ACUTE RADIOGRAPHIC FINDING IN THE CHEST. Head CT 05/13/16 00:00 IMPRESSION: CHRONIC CHANGES OF ATROPHY AND MICROVASCULAR ISCHEMIA. NO ACUTE PROCESS. Modified Barium Swallow 05/16/16 00:00 IMPRESSION: TRACHEAL ASPIRATION WITH THIN LIQUIDS. DEEP LARYNGEAL PENETRATION WITH THIN AND NECTAR CONSISTENCIES.PLEASE SEE SPEECH PATHOLOGIST REPORT FOR OTHER FINDINGS AND RECOMMENDATIONS. Assessment & Plan - Diagnosis (1) Chest pain Qualifiers: Chest pain type: unspecified Qualified Code(s): R07.9 - Chest pain, unspecified Is this a current diagnosis for this admission?: Yes (2) NSTEMI (non-ST elevated myocardial infarction) Is this a current diagnosis for this admission?: Yes (3) Hypertension Qualifiers: Hypertension type: essential hypertension Qualified Code(s): I10 - Essential (primary) hypertension Is this a current diagnosis for this admission?: Yes (4) COPD (chronic obstructive pulmonary disease) Qualifiers: COPD type: unspecified COPD Qualified Code(s): J44.9 - Chronic obstructive pulmonary disease, unspecified Is this a current diagnosis for this admission?: Yes - Notes Notes: Chest pain: Improved. Continue current management plans. Non-STEMI: Patient being treated medically. Exact etiology not clear, could be type II myocardial infarction but cannot rule out ACS but patient currently stable. Hypertension: Blood pressure was noted to be intermittently elevated yesterday but now under better control. COPD: Continue current management plans. CODE STATUS DO NOT RESUSCITATE. - Time Time with patient: 15-25 minutes - CODE STATUS : was discussed, patient remains DO NOT RESUSCITATE. Surrogate decision-maker unchanged. Multiple medical problems were addressed. Multiple medical problems were addressed.More than 50 % of the time spent coordinating care, discussing management plans with involved caregivers. Management plans discussed with involved personnels. Medical decision making was of moderate complexity.
[2016-05-17] MEDS: IPRATROPIUM/ALBUTEROL 0.5-2.5 MG/3 ML AMPUL NEB SCH ×2 (08:18→11:36)
[2016-05-17] MEDS: SUCRALFATE SUSP 1 GM/10 ML UDCUP PO SCH ×2 (08:41→10:58)
[2016-05-17] MEDS: LANSOPRAZOLE 30 MG TAB.RAP.DR PO SCH (08:41)
[2016-05-17] MEDS: PREDNISONE 20 MG TABLET PO SCH (09:12)
[2016-05-17] MEDS: METOPROLOL TARTRATE 50 MG TABLET PO SCH (09:13)
[2016-05-17] MEDS: DOCUSATE SODIUM 100 MG CAPSULE PO SCH (09:13)
[2016-05-17] MEDS: GUAIFENESIN 600 MG TABLET.SA PO SCH (09:14)
[2016-05-17] MEDS: LISINOPRIL 10 MG TABLET PO SCH (09:14)
[2016-05-17] MEDS: LEVOFLOXACIN 750 MG TABLET PO SCH (09:15)
[2016-05-17] MEDS: DULOXETINE HCL 30 MG CAPSULE.DR PO SCH (09:15)
[2016-05-17] MEDS: RANOLAZINE 500 MG TAB.SR.12H PO SCH (09:16)
[2016-05-17] MEDS: ISOSORBIDE MONONITRATE 60 MG TAB.ER.24H PO SCH (09:16)
[2016-05-17 12:39] VITALS: BP 155/72
--- NOTE | 2016-05-17 13:28 | PDOC DISCHARGE SUMMARY ---
General - Admit/Disc Date/PCP Admission Date/Primary Care Provider: 05/12/16 15:50 Discharge Date: 05/17/16 - Discharge Diagnosis (1) Pneumonia Is this a current diagnosis for this admission?: Yes (2) Sepsis Is this a current diagnosis for this admission?: Yes (3) NSTEMI (non-ST elevated myocardial infarction) Is this a current diagnosis for this admission?: Yes (4) COPD (chronic obstructive pulmonary disease) Is this a current diagnosis for this admission?: Yes (5) Depression Is this a current diagnosis for this admission?: Yes (6) Hypertension Is this a current diagnosis for this admission?: Yes (7) Anemia of chronic disease Is this a current diagnosis for this admission?: Yes - Additional Information Resuscitation Status: Do Not Resuscitate Discharge Diet: Cardiac - low-fat low-salt, Other (Comments) - soft mechanical with ground meats Discharge Activity: Activity As Tolerated, Balance Activity w/Rest, Slowly Increase Activity Home Medications: Diazepam [Valium 5 mg Tablet] 5 mg PO DAILYP PRN 05/12/16 Duloxetine HCl 30 mg PO QPM 05/12/16 Duloxetine HCl 60 mg PO DAILY 05/12/16 Gabapentin [Neurontin 300 mg Capsule] 300 mg PO TIDP PRN 05/12/16 Aspirin [Aspirin 81 mg Chewable Tablet] 81 mg PO DAILY #1 pkg 05/17/16 Isosorbide Mononitrate [Imdur 60 mg Tablet.er] 60 mg PO DAILY #30 tab.er.24h 05/30 Levofloxacin [Levaquin 750 mg Tablet] 750 mg PO DAILY #8 tablet 05/17/16 Lisinopril [Prinivil 10 mg Tablet] 10 mg PO Q12 #60 tablet 05/17/16 Metoprolol Tartrate [Lopressor 50 mg Tablet] 50 mg PO Q12 #60 tablet 05/17/16 Prednisone 10 mg PO ASDIR #8 tablet 05/17/16 Ranolazine [Ranexa 500 mg Tab.sr] 500 mg PO Q12 #60 tab.sr.12h 05/17/16 Temazepam [Restoril] 15 mg PO HSP PRN #0 05/17/16 History of Present Illness Patient complains of: Shortness of breath History of Present Illness: MARY JANE CABA is a 76 year old female, with history of hypertension, COPD, chronic back pain , chronic smoker presents to the hospital with shortness of breath for about a week that is worse for the last 48 hours. There is associated chills and fever. The ambulance was called, O2 saturation noted to be low, patient patient oxygen and brought to the emergency room where she was found to have an elevated WBC. Antibiotics were started and the patient was referred for admission. For details please refer to history and physical examination performed by the admitting physician. Hospital Course Hospital Course: The patient was admitted to [facility]. Broad-spectrum antibiotics was started as well as steroids. Nebulizers were likewise given. Serial troponins were obtained as they were elevated and eventually noted to be trending down. Cardiology was consulted reportedly the troponin likely due to hypoxemia brought about by the pneumonia and sepsis. An impression of non-ST elevation myocardial infarction was made and the patient was treated medically. Patient was started on Ranexa, beta farida, and ANGELLA inhibitor. The patient improved. Intravenous steroid was shifted to oral as well as antibiotics were shifted to oral. Blood culture grew staphylococcus on one bottle likely a contaminant. Sputum grew Caroline. Cardiology performed echocardiogram showing a normal ejection fraction. The rest of the hospital stays unremarkable. shutdown planner was consulted for home health. The patient refused subacute rehabilitation. Cardiology cleared the patient to be discharged. Physical Exam Vital Signs: Temp Pulse Resp BP Pulse Ox 98.4 F 56 L 16 155/72 H 98 05/17/16 12:39 05/17/16 12:39 05/17/16 12:39 05/17/16 12:39 05/17/16 12:39 Intake & Output 05/16/16 05/17/16 05/18/16 06:59 06:59 06:59 Intake Total 1799 1480 236 Output Total 1000 1000 250 Balance 799 480 -14 Weight 48.8 kg 59.1 kg General appearance: PRESENT: no acute distress, cooperative Head exam: PRESENT: normocephalic Eye exam: PRESENT: EOMI Mouth exam: PRESENT: moist, neck supple Neck exam: ABSENT: JVD Respiratory exam: PRESENT: rhonchi - few, unlabored. ABSENT: wheezes Cardiovascular exam: PRESENT: RRR. ABSENT: gallop GI/Abdominal exam: PRESENT: soft. ABSENT: distended, tenderness Extremities exam: PRESENT: other - Trace edema Neurological exam: PRESENT: alert, awake, oriented to situation Skin exam: PRESENT: dry, warm. ABSENT: cyanosis Results Laboratory Results: 05/17/16 05:14 05/17/16 05:14 05/17/16 05/17/16 05:14 05:14 WBC 10.3 RBC 2.94 L Hgb 9.7 L Hct 28.3 L MCV 96 MCH 33.0 MCHC 34.3 RDW 14.1 H Plt Count 187 Seg Neutrophils % 60.1 Lymphocytes % 20.0 Monocytes % 19.1 H Eosinophils % 0.2 Basophils % 0.6 Absolute Neutrophils 6.2 Absolute Lymphocytes 2.1 Absolute Monocytes 2.0 H Absolute Eosinophils 0.0 Absolute Basophils 0.1 Sodium 136.3 L Potassium 4.2 Chloride 102 Carbon Dioxide 26 Anion Gap 8 BUN 32 H Creatinine 0.82 Est GFR ( Amer) > 60 Est GFR (Non-Af Amer) > 60 Glucose 75 Calcium 9.2 Magnesium 1.8 05/12/16 05/12/16 05/13/16 18:35 18:35 00:27 Creatine Kinase 255 H CK-MB (CK-2) 4.24 Troponin I 2.350 1.350 05/14/16 11:37 Creatine Kinase CK-MB (CK-2) Troponin I 1.010 Impressions: Chest X-Ray 05/12/16 13:52 IMPRESSION: NO ACUTE RADIOGRAPHIC FINDING IN THE CHEST. Head CT 05/13/16 00:00 IMPRESSION: CHRONIC CHANGES OF ATROPHY AND MICROVASCULAR ISCHEMIA. NO ACUTE PROCESS. Modified Barium Swallow 05/16/16 00:00 IMPRESSION: TRACHEAL ASPIRATION WITH THIN LIQUIDS. DEEP LARYNGEAL PENETRATION WITH THIN AND NECTAR CONSISTENCIES.PLEASE SEE SPEECH PATHOLOGIST REPORT FOR OTHER FINDINGS AND RECOMMENDATIONS. Qualifiers PATEINT BEING DISCHARGED WITH ANY OF THE FOLLOWING DIAGNOSIS?: MA MA Pt being discharged on Aspirin therapy?: Yes MA Pt being discharged on Statins?: Yes MA Pt discharged ACEI/ARBS?: Yes Plan Discharge Plan: 1. Follow-up with primary care physician in one week, follow-up with Dr. Gutierrez in one week. Time Spent: Less than 30 Minutes
== END 2016-05-17 14:10 | disposition home health service (06) | DRG 871 ==
LOC: ER 12:13 → EH 15:45 → UNDOADMIN 15:45 → EH 15:50 → 3N 18:31
PROVIDERS: ADMIT Emergency Medicine; ATTEND Emergency Medicine
DX: A41.9 Sepsis, unspecified organism (principal); J18.9 Pneumonia, unspecified organism; I21.4 Non-ST elevation (NSTEMI) myocardial infarction; J44.1 Chronic obstructive pulmonary disease with (acute) exacerbation; D63.8 Anemia in other chronic diseases classified elsewhere; I10 Essential (primary) hypertension; M54.9 Dorsalgia, unspecified; G89.29 Other chronic pain; F32.9 Major depressive disorder, single episode, unspecified; M19.90 Unspecified osteoarthritis, unspecified site; Z79.82 Long term (current) use of aspirin; Z79.899 Other long term (current) drug therapy; Z66 Do not resuscitate; F17.210 Nicotine dependence, cigarettes, uncomplicated; Z87.19 Personal history of other diseases of the digestive system
CPT/HCPCS: 36415; 70450; 71010; 74230; 80048; 80053; 80307; 81001; 82272; 82550; 82553; 82803; 82962; 83605; 83735; 84484; 85025; 86850; 86900; 86901; 87040; 87070; 87077; 87086; 87186; 87205; 87804; 93005; 93010; 93306; 94640; 94799; 96365; 96366; 99291; G8996-GN; G8997-GN; G8998-GN; J0360; J0692; J1652; J1940; J1956; J2920; J3475; J3490; J7030; J7512; J7620

== ENCOUNTER 2016-05-18 17:09 | Inpatient (IN) | payer MEDICARE, OTHER ==
--- NOTE | 2016-05-18 18:53 | ER Document Report ---
ED Respiratory Problem - General Mode of Arrival: Medic Information source: Patient, Emergency Med Personnel, [facility] Records TRAVEL OUTSIDE OF THE [place] IN LAST 30 DAYS: No - HPI Patient complains to provider of: Short of breath Onset: Other - see HPI note Similar symptoms previously: Yes Recently seen / treated by doctor: Yes <KAYDEN HASSAN - Last Filed: 05/18/16 23:23> <ANNIKA GRUBBS - Last Filed: 05/19/16 01:42> <PILO STEIN - Last Filed: 05/27/16 16:09> - General Chief Complaint: Breathing Difficulty Stated Complaint: DIFFICULTY BREATHING Notes: Patient is a 76-year-old female presented emergency room for shortness of breath. EMS. Patient had low O2 saturation in the high 80s. Patient was recently discharged from the hospital yesterday. Patient was evaluated for possible pneumonia, non-STEMI, COPD, and hyertension. Patient was not offered home oxygen and told triage that she wanted home oxygen. Patient refused to be sent to rehabilitation after being discharged. Patient lives at home and is not able to care for herself. Patient had a swallow study while in the emergency department and complains of not being able swallow. Patient is DO NOT RESUSCITATE status. However, there is no paperwork for this. Patient denies any nausea, vomiting or diarrhea. Patient's primary care physician is Dr. Hawkins in [place]. Patient has no known allergies. (KAYDEN HASSAN) - Related Data Allergies/Adverse Reactions: No Known Allergies Allergy (Verified 05/12/16 12:31) Home Medications: Current Home Medications Duloxetine HCl 30 mg PO QPM 05/19/16 [History] Duloxetine HCl 60 mg PO QAM 05/19/16 [History] Isosorbide Mononitrate [Isosorbide Mononitrate ER] 60 mg PO DAILY 05/19/16 [ History] Levofloxacin [Levaquin 750 mg Tablet] 750 mg PO DAILY 05/19/16 [History] Metoprolol Tartrate [Lopressor 50 mg Tablet] 50 mg PO Q12 05/19/16 [History] Ranolazine [Ranexa 500 mg Tab.sr] 500 mg PO Q12 05/19/16 [History] Past Medical History - General Information source: Patient - Social History Smoking Status: Current Every Day Smoker Frequency of alcohol use: None Drug Abuse: None Family History: COPD, Hypertension, Malignancy Patient has suicidal ideation: No Patient has homicidal ideation: No - Past Medical History Cardiac Medical History: Reports: Hx Heart Attack, Hx Hypertension Pulmonary Medical History: Reports: Hx COPD, Hx Pneumonia GI Medical History: Reports: Hx Ulcer Musculoskeltal Medical History: Reports Hx Arthritis Psychiatric Medical History: Reports: Hx Depression Past Surgical History: Reports: Hx Cardiac Catheterization - stents, Hx Orthopedic Surgery - R Shoulder, knee - Immunizations Hx Diphtheria, Pertussis, Tetanus Vaccination: Yes <KAYDEN HASSAN - Last Filed: 05/18/16 23:23> Review of Systems - Review of Systems Constitutional: No symptoms reported EENT: No symptoms reported Cardiovascular: No symptoms reported Respiratory: See HPI, Short of breath Gastrointestinal: No symptoms reported Genitourinary: No symptoms reported Female Genitourinary: No symptoms reported Musculoskeletal: No symptoms reported Skin: No symptoms reported Hematologic/Lymphatic: No symptoms reported Neurological/Psychological: No symptoms reported -: Yes All other systems reviewed and negative <KAYDEN HASSAN - Filed: 05/18/16 23:23> Physical Exam - Vital signs Interpretation: Normal - General General appearance: Appears well, Alert In distress: Mild - HEENT Head: Normocephalic, Atraumatic Eyes: Normal Pupils: PERRL Mucous membranes: Moist - Respiratory Respiratory status: No respiratory distress Chest status: Nontender Breath sounds: Normal Chest palpation: Normal - Cardiovascular Rhythm: Regular Heart sounds: Normal auscultation Murmur: No - Abdominal Inspection: Normal Distension: No distension Bowel sounds: Normal Tenderness: Nontender Organomegaly: No organomegaly - Back Back: Normal, Nontender - Extremities General upper extremity: Normal inspection, Normal ROM, Normal strength General lower extremity: Normal inspection, Normal ROM, Normal strength - Neurological Neuro grossly intact: Yes Cognition: Normal Orientation: AAOx4 Viviana Coma Scale Eye Opening: Spontaneous Viviana Coma Scale Verbal: Oriented Williams Coma Scale Motor: Obeys Commands Williams Coma Scale Total: 15 Speech: Normal - Psychological Associated symptoms: Normal affect, Normal mood - Skin Skin Temperature: Warm Skin Moisture: Dry <KAYDEN HASSAN Last Filed: 05/18/16 23:23> Course - Laboratory Result Diagrams: 05/18/16 20:05 05/18/16 20:05 - Consults Dr. Chung Time consulted: 22:55 <BLAKEKAYDEN WILSON - Last Filed: 05/18/16 23:23> - Laboratory Result Diagrams: 05/18/16 20:05 05/18/16 20:05 <ANNIKA GRUBBS - Last Filed: 05/19/16 01:42> - Laboratory Result Diagrams: 05/19/16 06:37 05/18/16 20:05 <PILO STEIN - Last Filed: 05/27/16 16:09> - Re-evaluation Re-evalutation: 05/19/16 01:[address] Chung who agrees to admit the patient to telemetry for further evaluation and monitoring and supplemental oxygen. (ANNIKA GRUBBS) 05/18/16 22:56 I personally performed the services described in the documentation, reviewed and edited the documentation which was dictated to my scribe in my presence, and it accurately records my words and actions. Patient presents emergency, chief complaint of shortness of breath per EMS low O2 sats of 87% patient was discharged from the hospital yesterday. I combed through every medical record of her prolonged stay and evaluations. She presented on 3:30 with acute hypoxic respiratory failure BiPAP and sepsis never had a positive chest x-ray for pneumonia and grew Caroline. She is a hypertensive COPD chronic back pain patient her troponin is elevated she was seen by Dr. Arellano and cardiology felt to be medical management. In addition to that she had a swallow evaluation which showed tracheal aspiration. Patient was offered subacute rehabilitation but refused. Patient is elderly the record says she is DNR patient says she is DNR but I have no documentation paperwork of DNR. At the bedside patient is worse no acute respiratory distress alert and oriented lungs are clear abdomen is soft no peripheral edema CT of the chest is negative. 7.43 PCO2 41 PO2 74 troponin is not elevated at 0.073. Patient requesting something to drink. I asked her about recommendations per the swallow eval and she said she was taught how to swallow but still is choking on it. This point I said she can do ice chips only. Patient states she's unable to go home and wants to go to rehabilitation at this point I contacted the hospitalist concrete vibrator operator. 05/18/16 23:55 Spoke to the hospitalist in regards to admission he stated he is working on several other admissions and is unable to take this potentially at this time therefore I spoke with Dr. Grubbs was in the care of the patient. Plan is to admit the patient to the hospital for disposition possibly to a rehabilitation facility. (PILO STEIN) - Vital Signs Vital signs: Temp Pulse Resp BP Pulse Ox 98.4 F 66 17 154/74 H 94 05/20/16 14:12 05/20/16 14:12 05/20/16 14:12 05/20/16 14:12 05/20/16 14:12 - Laboratory Laboratory results interpreted by me: 05/18/16 05/18/16 05/18/16 20:05 20:05 20:05 WBC 16.5 H RBC 2.85 L Hgb 9.3 L Hct 28.0 L MCV 98 H RDW 14.4 H Seg Neutrophils % 80.6 H Lymphocytes % 7.0 L Absolute Neutrophils 13.3 H Absolute Monocytes 2.0 H ABG pO2 ABG HCO3 ABG Total CO2 BUN 30 H Glucose 115 H Creatine Kinase 25 L NT-Pro-B Natriuret Pep 4460 H 05/18/16 20:35 WBC RBC Hgb Hct MCV RDW Seg Neutrophils % Lymphocytes % Absolute Neutrophils Absolute Monocytes ABG pO2 74.3 L ABG HCO3 27.1 H ABG Total CO2 28.3 H BUN Glucose Creatine Kinase NT-Pro-B Natriuret Pep - Consults Dr. Chung Reason for consultation: 05/18/16 22:[address] Chung, he did not answer; will wait for call back. 05/18/16 23:11 Dr. Chung called and says he will call back soon. (KAYDEN HASSAN) Critical Care Note - Critical Care Note Total time excluding time spent on procedures (mins): 45 <PILO STEIN - Last Filed: 05/27/16 16:09> Discharge <KAYDEN HASSAN - Last Filed: 05/18/16 23:23> - Discharge Admitting Provider: Hospitalist Unit Admitted: Telemetry <ANNIKA GRUBBS - Last Filed: 05/19/16 01:42> <PILO STEIN - Last Filed: 05/27/16 16:09> - Discharge Clinical Impression: COPD exacerbation, recent discharge non-STEMI Anemia Qualifiers: Anemia type: unspecified type Qualified Code(s): D64.9 - Anemia, unspecified Condition: Stable Disposition: ADMITTED INPATIENT Scribe Attestation: 05/27/16 16:09 i personally performed the services described in the documentation, reviewed the documentation recorded by the scribe in my presence and it accurately and completely records my words and actions. (PILO STEIN) Scribe Documentation - Scribe Written by Scribe:: Kayden Hassan 05/18/16 23:23 acting as scribe for :: Scooter <KAYDEN HASSAN - Last Filed: 05/18/16 23:23>
[2016-05-18 20:18] LABS: ABSOLUTE BASOPHILS # (AUTO) 0.1 10^3/uL (0.0-0.2); ABSOLUTE LYMPHOCYTES (AUTO) 1.2 10^3/uL (0.5-4.7); ABSOLUTE NEUT (AUTO) 13.3 10^3/uL (1.7-8.2); BASOPHILS % (AUTO) 0.4 % (0-2); HEMOGLOBIN 9.3 g/dL (12.0-15.5); HGB HCT DIFFERENCE -0.1; MEAN CORPUSCULAR HEMOGLOBIN 32.7 pg (27.0-33.4); MEAN CORPUSCULAR HGB CONC 33.4 g/dL (32.0-36.0); MEAN CORPUSCULAR VOLUME 98 fl (80-97); RED BLOOD COUNT 2.85 10^6/uL (3.72-5.28); RED CELL DISTRIBUTION WIDTH 14.4 % (11.5-14.0); SEGMENTED NEUTROPHILS % (AUTO) 80.6 % (42-78); WHITE BLOOD COUNT 16.5 10^3/uL (4.0-10.5)
[2016-05-18 20:40] LABS: ANION GAP 9 (5-19); BLOOD UREA NITROGEN 30 mg/dL (7-20); CALCIUM 9.6 mg/dL (8.4-10.2); CARBON DIOXIDE 30 mmol/L (22-30); CHLORIDE 103 mmol/L (98-107); CREATINE KINASE 25 U/L (30-135); CREATININE RESULT 0.87 mg/dL (0.52-1.25); GLUCOSE 115 mg/dL (75-110); POTASSIUM 4.5 mmol/L (3.6-5.0); SODIUM 141.6 mmol/L (137-145)
[2016-05-18 20:48] LABS: ARTERIAL BLOOD BASE EXCESS 2.5 mmol/L; ARTERIAL BLOOD O2 SATURATION 95.3 % (94-98)
[2016-05-18 20:55] LABS: TROPONIN I 0.073 ng/mL
[2016-05-19] MEDS ORDERED: GUAIFENESIN SYRP 200 MG/10 ML UDC PO PRN (04:46)
[2016-05-19] MEDS ORDERED: ALBUTEROL SULFATE 0.083% NEB 2.5 MG/3 ML AMPUL NEB PRN (04:46)
[2016-05-19] MEDS ORDERED: DEXTROSE 40% GEL 15 GM TUBE PO PRN ×2 (04:53)
[2016-05-19] MEDS ORDERED: INSULIN LISPRO 100 UNIT/ML 3 ML VIAL SUBCUT PRN (04:53)
[2016-05-19] MEDS ORDERED: GLUCAGON,HUMAN RECOMB 1 MG INJ IM PRN (04:53)
[2016-05-19] MEDS ORDERED: DEXTROSE 50%-WATER 25 GM/50 ML DISP.SYRIN IV PRN ×2 (04:53)
[2016-05-19] MEDS ORDERED: PREDNISONE 20 MG TABLET PO SCH (05:00)
[2016-05-19] MEDS ORDERED: PHARMACY COMMUNICATION ORDER MC NR (05:00)
[2016-05-19] MEDS ORDERED: CEFTRIAXONE 1 GM/D5W RTU 50 ML IV SCH (05:00)
[2016-05-19] MEDS ORDERED: NICOTINE 21 MG/24 HR PATCH.TD24 TD PRN (05:11)
[2016-05-19] MEDS: ACETAMINOPHEN 325 MG TABLET PO PRN ×2 (05:17→21:26)
[2016-05-19] MEDS: LANSOPRAZOLE 30 MG TAB.RAP.DR PO SCH ×2 (05:18→18:13)
--- NOTE | 2016-05-19 05:22 | PDOC H&P ---
History of Present Illness Admission Date/PCP: 05/19/16 02:04 PEÑA DURANT PA-C Patient complains of: sob History of Present Illness: MARY JANE CABA is a 76 year old female, with underlying COPD, just discharged from our hospital on the fourth who presents to the emergency room for evaluation of above complaint. She was hospitalized at our facility May 12 through the fourth of this month with discharge diagnoses of pneumonia, sepsis secondary to same, non-ST elevation [place], COPD, along with other diagnoses. History and physical and discharge summary have been reviewed. Inpatient rehabilitation was discussed with the patient, but she declined, feeling she could take care of herself at home. She lives alone. however, once she got home, her shortness of breath simply worsened and she came back to the emergency room. She's had no fever or chills, nausea vomiting, chest or abdominal pain. Patient has been discussed with emergency room physician who evaluated the patient. . Laboratory results are listed in [facility] and are reviewed. X-ray summary results are listed below, with full report(s) reviewed. . Social history/personal habits: . Lives alone. Retired. Pack-a-day smoker. No alcohol or illicit drug use. Allergies/adverse reactions NKDA. Home medications Home medications initially autopopulated into [facility] may not accurately reflect patient's true medications, dosages, and/or frequencies. Unfortunately, patient uncertain of all her medications/dosages/frequencies. REVIEW OF SYSTEMS: Constitutional: No fever or chills. Eyes: Wears glasses. ENT: Continued intermittent problems with swallowing. Swallowing eval during the above hospital stay led to the recommendation for soft mechanical, chopped meats, thin liquids, no straws, sips only, alternate bites and sips. Aspiration precautions. Please refer to swallowing eval report. No hearing problems or complaints. Pulmonary: See history and present illness. Cardiovascular: No current complaints, including chest pain. Gastrointestinal: No current complaints, including nausea or vomiting. Skin: No current complaints, including rashes. Hematologic: No unusual easy bruising or bleeding. Neurologic: No current complaints, including numbness or tingling. Musculoskeletal: Joint pain from arthritis. Psychiatric: Anxiety depression; denies suicidal or homicidal ideation. Endocrine: No current complaints, including polyuria. Genitourinary: No current complaints, including dysuria. PHYSICAL EXAMINATION: Neither height nor weight are recorded on the chart. Pulse 73 and regular. 96 % saturation on 2 L oxygen per nasal cannula. Respirations are 22 and unlabored. Blood pressure 169/64. Temperature 97.8. Well-nourished well-developed elderly female appearing approximately her stated age. Pleasant awake alert and cooperative. Appears to feel a bit under the weather, so to speak. Mildly anxious, without agitation. Skin is warm and dry. No grossly obvious evidence of rash in areas of skin examined. No subcutaneous nodules palpated. ENT: Hearing grossly normal to normal conversation. Tongue midline on protrusion pink and slightly tacky. Eyes: No scleral icterus. Pupils equal and reactive to light at 4 mm. [place] conjunctivae. Neck is supple and nontender to gentle active range of motion and palpation. Midline trachea. No palpable thyroid nodule mass enlargement or tenderness. Lymphatic: No palpable cervical or clavicular nodes. Neck and lymphatic exams limited by patient body habitus. Psychiatric: Reasonable insight into acute and chronic medical issues. Oriented to time location and why here. Lungs: Auscultation reveals equal breath sounds bilaterally. No use of accessory respiratory muscles. Diffusely mild coarse breath sounds, with expiratory wheezing bilaterally. Patient states is not uncommon for her to wheeze on a regular basis. Cardiovascular: Heart regular rate and rhythm, without gallop murmur or rub. No carotid or abdominal aortic bruits. No ankle or pedal edema. Faintly palpable dorsalis pedis pulses. Abdomen: soft, slightly, distended nontender with positive bowel sounds. Unable to adequately evaluate abdomen for masses or organomegaly due to distention. Extremities: Feet are warm and dry. No calf tenderness to compression. No grossly obvious visual evidence of calf swelling. Gentle manipulation of lower extremities fails to reveal any obvious evidence of injury or instability to knees hips or ankles. Neurologic: Moves upper extremities grossly normally. Patellar reflexes absent. Absent Babinski. Light touch is intact at feet. Dorsiflexion and plantarflexion of feet 5 / 5 and symmetric. Past Medical History Cardiac Medical History: Reports: Myocardial Infarction, Hyperlipidema, Hypertension Denies: DVT, Pulmonary Embolism Pulmonary Medical History: Reports: Chronic Obstructive Pulmonary Disease (COPD) , Pneumonia Denies: Sleep Apnea Neurological Medical History: Denies: Hemorrhagic CVA, Ischemic CVA, Seizures Endocrine Medical History: Denies: Diabetes Mellitus Type 1, Diabetes Mellitus Type 2, Hyperthyroidism, Hypothyroidism Renal/ Medical History: Reports: None Malignancy Medical History: Reports: Skin Cancer GI Medical History: Reports: Peptic Ulcer Disease - Bleeding ulcer November 2015 , per patient. Denies: Cirrhosis, Gastroesophageal Reflux Disease, Hepatitis Musculoskeltal Medical History: Reports: Arthritis Psychiatric Medical History: Reports: Depression Infectious Medical History: Denies: Hepatitis B, Hepatitis C Past Surgical History Past Surgical History: Reports: Cardiac Catheterization - stents, Orthopedic Surgery - R Shoulder, knee Denies: Hysterectomy Social History Information Source: Patient, Emergency Med Personnel, [facility] Records Lives with: Alone Smoking Status: Current Every Day Smoker Frequency of Alcohol Use: None Hx Recreational Drug Use: No Drugs: None Hx Prescription Drug Abuse: No - Advance Directive Resuscitation Status: Do Not Resuscitate - Implications of DO NOT RESUSCITATE/ DO NOT INTUBATE status discussed with patient. Discussed in layperson's terms. Implications understood. Patient is the health care decision maker. Patient conversation is lucid and appropriate. Patient desires DO NOT RESUSCITATE/DO NOT INTUBATE status. Will honor patient wishes. Surrogate healthcare decision maker:: Son Family History Family History: COPD, Hypertension, Malignancy Parental Family History Reviewed: Yes Children Family History Reviewed: Yes Sibling(s) Family History Reviewed.: Yes Medication/Allergy Home Medications: Levofloxacin [Levaquin 750 mg Tablet] 750 mg PO DAILY 05/19/16 RX: Duloxetine HCl 30 mg PO QPM 05/19/16 RX: Duloxetine HCl 60 mg PO QAM 05/19/16 RX: Isosorbide Mononitrate [Isosorbide Mononitrate ER] 60 mg PO DAILY 05/19/16 RX: Metoprolol Tartrate [Lopressor 50 mg Tablet] 50 mg PO Q12 05/19/16 RX: Ranolazine [Ranexa 500 mg Tab.sr] 500 mg PO Q12 05/19/16 Prednisone [Sterapred Ds] 1 pkg PO ASDIR PRN 12 Days 05/20/16 RX: Albuterol Sulfate [Ventolin 0.083% Neb 2.5 mg/3 mL Ampul] 2.5 mg NEB RTQ4HP PRN vial.neb 05/20/16 RX: Aspirin [Aspirin 325 mg Tablet] 325 mg PO DAILY tablet 05/20/16 RX: Diazepam [Valium 5 mg Tablet] 5 mg PO DAILYP PRN #15 tablet 05/20/16 RX: Guaifenesin [Robitussin Syrup 200 mg/10 ml Ud Cup] 200 mg PO Q4HP PRN udc 05/20/16 RX: Hydrocodone/Acetaminophen [[place] 5-325 mg Tablet] 1 tab PO BIDP PRN #20 tablet 05/20/16 RX: Ipratropium/Albuterol Sulfate [Duoneb 3 ml Ampul] 3 ml NEB [id number] vial.diana 05/20/16 RX: Lansoprazole [Prevacid 30 mg Odt Tablet] 30 mg PO BID@0600,1700 tab. 05/20/16 RX: Levofloxacin [Levaquin 750 mg Tablet] 750 mg PO DAILY tablet 05/20/16 RX: Lisinopril [Prinivil 10 mg Tablet] 20 mg PO DAILY tablet 05/20/16 Allergies/Adverse Reactions: No Known Allergies Allergy (Verified 05/12/16 12:31) Physical Exam Vital Signs: Temp Pulse Resp BP Pulse Ox 97.8 F 64 18 134/62 H 96 05/18/16 17:18 05/18/16 17:18 05/18/16 23:00 05/18/16 17:18 05/18/16 23:00 Results Impressions: Chest CT 05/18/16 19:50 IMPRESSION: No significant intrathoracic abnormalities were identified. Findings as noted above. Assessment & Plan - Diagnosis (1) Tobacco dependency Is this a current diagnosis for this admission?: YesPlan: When necessary nicotine patch. (2) COPD exacerbation Is this a current diagnosis for this admission?: YesPlan: Patient will be admitted under pneumonia protocol. Incentive spirometry twice a day. Scheduled DuoNeb's. PRN albuterol nebs daily prednisone. Prevacid for gastritis prophylaxis. Antibiotics will consist of cefepime and IV Zithromax.. I strongly encouraged patient to notify staff should patient feel that her breathing is worsening. I have strongly encouraged patient not to get out of bed without notifying staff , , to avoid a fall with injury. Knee high SCDs for DVT prophylaxis, along with subcutaneous heparin. Patient states she may now be interested in inpatient rehabilitation. Discharge planning consult. Impression and plans were discussed with patient, who concurs. Time spent in evaluation and management of patient: 62 minutes. (3) DNR (do not resuscitate) Is this a current diagnosis for this admission?: Yes (4) NSTEMI (non-ST elevated myocardial infarction) Is this a current diagnosis for this admission?: YesPlan: Resume home medications as appropriate once these have been determined and reviewed. (5) Anemia Qualifiers: Anemia type: unspecified type Qualified Code(s): D64.9 - Anemia, unspecified Is this a current diagnosis for this admission?: YesPlan: Follow-up CBC with differential. No need for transfusion at present time. (6) HLD (hyperlipidemia) Qualifiers: Hyperlipidemia type: unspecified Qualified Code(s): E78.5 - Hyperlipidemia, unspecified Is this a current diagnosis for this admission?: YesPlan: Resume home medications as appropriate once these have been determined and reviewed. (7) Hypertension Qualifiers: Hypertension type: essential hypertension Qualified Code(s): I10 - Essential (primary) hypertension Is this a current diagnosis for this admission?: YesPlan: Resume home medications as appropriate once these have been determined and reviewed. - Inpatient Certification Based on my medical assessment, after consideration of the patient's comorbidities, presenting symptoms, or acuity I expect that the services needed warrant INPATIENT care.: Yes I certify that my determination is in accordance with my understanding of Medicare's requirements for reasonable and necessary INPATIENT services [42 CFR 412.3e].: Yes Medical Necessity: Failure to Improve With Outpatient Therapy, Need for Nebulizer Therapy and Monitoring of Response, Need for IV Antibiotics, Risk of Complication if Not Cared For in Hospital Post Hospital Care: D/C or Transfer Summary
[2016-05-19] MEDS ORDERED: CEFEPIME 2 GM/D5W RTU 2 GM/50 ML RTUPB IV SCH (06:00)
[2016-05-19 06:57] LABS: HEMOGLOBIN 9.7 g/dL (12.0-15.5); HGB HCT DIFFERENCE 0.1; MEAN CORPUSCULAR HEMOGLOBIN 32.8 pg (27.0-33.4); MEAN CORPUSCULAR HGB CONC 33.6 g/dL (32.0-36.0); MEAN CORPUSCULAR VOLUME 98 fl (80-97); RED BLOOD COUNT 2.96 10^6/uL (3.72-5.28); RED CELL DISTRIBUTION WIDTH 14.1 % (11.5-14.0); WHITE BLOOD COUNT 16.4 10^3/uL (4.0-10.5)
[2016-05-19 07:24] LABS: ANISOCYTOSIS SLIGHT; BAND NEUTROPHILS % (MANUAL) 1 % (3-5); BASOPHILS % (MANUAL) 0 % (0-2); BURR CELLS SLIGHT; EOSINOPHILS % (MANUAL) 0 % (0-6); LYMPHOCYTES % (MANUAL) 26 % (13-45); OVALOCYTES SLIGHT; POIKILOCYTOSIS SLIGHT; SCHISTOCYTES SLIGHT; TOTAL CELLS COUNTED 100; TOXIC GRANULATION SLIGHT; TOXIC VACUOLATION PRESENT
[2016-05-19] MEDS: IPRATROPIUM/ALBUTEROL 0.5-2.5 MG/3 ML AMPUL NEB SCH ×3 (08:30→21:48)
[2016-05-19] MEDS: LEVOFLOXACIN 750 MG TABLET PO SCH (11:32)
[2016-05-19] MEDS: LISINOPRIL 10 MG TABLET PO SCH (11:34)
[2016-05-19] MEDS: ASPIRIN 325 MG TABLET PO SCH (11:36)
[2016-05-19] MEDS: ISOSORBIDE MONONITRATE 60 MG TAB.ER.24H PO SCH (11:36)
[2016-05-19] MEDS: METOPROLOL TARTRATE 50 MG TABLET PO SCH ×2 (11:37→21:26)
[2016-05-19] MEDS: HEPARIN SOD (PORCINE) 5,000 UNIT/ML 1 ML SYRINGE SUBCUT SCH ×2 (11:37→21:26)
[2016-05-19] MEDS: RANOLAZINE 500 MG TAB.SR.12H PO SCH ×2 (18:12→21:26)
[2016-05-20] MEDS: LANSOPRAZOLE 30 MG TAB.RAP.DR PO SCH (06:15)
[2016-05-20] MEDS: IPRATROPIUM/ALBUTEROL 0.5-2.5 MG/3 ML AMPUL NEB SCH (09:14)
--- NOTE | 2016-05-20 10:07 | PDOC TRANSFER SUMMARY ---
General - Admit/Disc Date/PCP Admission Date/Primary Care Provider: 05/19/16 04:46 PEÑA DURANT PA-C Discharge Date: 05/20/16 - Discharge Diagnosis (1) COPD exacerbation Is this a current diagnosis for this admission?: Yes (2) Pneumonia Is this a current diagnosis for this admission?: Yes (3) Sepsis Is this a current diagnosis for this admission?: Yes (4) NSTEMI (non-ST elevated myocardial infarction) Is this a current diagnosis for this admission?: Yes (5) Hypertension Is this a current diagnosis for this admission?: Yes - Additional Information Resuscitation Status: Do Not Resuscitate - Implications of DO NOT RESUSCITATE/ DO NOT INTUBATE status discussed with [patient]. Discussed in layperson's terms. Implications understood. [ Patient ] is the health care decision maker. [Patient] conversation is lucid and appropriate. [Patient] desires DO NOT RESUSCITATE/DO NOT INTUBATE status. Will honor [patient] wishes. Discharge Diet: Cardiac - low-fat low-salt Discharge Activity: Activity As Tolerated, Balance Activity w/Rest, Slowly Increase Activity, Supervised Activity Home Medications: Duloxetine HCl 30 mg PO QPM 05/19/16 Duloxetine HCl 60 mg PO QAM 05/19/16 Isosorbide Mononitrate [Isosorbide Mononitrate ER] 60 mg PO DAILY 05/19/16 Levofloxacin [Levaquin 750 mg Tablet] 750 mg PO DAILY 05/19/16 Metoprolol Tartrate [Lopressor 50 mg Tablet] 50 mg PO Q12 05/19/16 Ranolazine [Ranexa 500 mg Tab.sr] 500 mg PO Q12 05/19/16 Albuterol Sulfate [Ventolin 0.083% Neb 2.5 mg/3 mL Ampul] 2.5 mg NEB RTQ4HP PRN vial.neb 05/20/16 Aspirin [Aspirin 325 mg Tablet] 325 mg PO DAILY tablet 05/20/16 Diazepam [Valium 5 mg Tablet] 5 mg PO DAILYP PRN #15 tablet 05/20/16 Guaifenesin [Robitussin Syrup 200 mg/10 ml Ud Cup] 200 mg PO Q4HP PRN udc 05/20 Hydrocodone/Acetaminophen [[place] 5-325 mg Tablet] 1 tab PO BIDP PRN #20 tablet 05/20/16 Ipratropium/Albuterol Sulfate [Duoneb 3 ml Ampul] 3 ml [facility] [id number] vial.diana 08/29 Lansoprazole [Prevacid 30 mg Odt Tablet] 30 mg PO BID@0600,1700 tab.rap. 08/29 Levofloxacin [Levaquin 750 mg Tablet] 750 mg PO DAILY tablet 05/20/16 Lisinopril [Prinivil 10 mg Tablet] 20 mg PO DAILY tablet 05/20/16 Prednisone [Sterapred Ds] 1 pkg PO ASDIR PRN 12 Days 05/20/16 Additional Information: Antibiotic to complete for 5 days History of Present Illness Admission Date/PCP: 05/19/16 04:46 PEÑA DURANT PA-C Patient complains of: Shortness of breath History of Present Illness: MARY JANE CABA is a 76 year old female, with underlying COPD, just discharged from our hospital on the who presents to the emergency room for evaluation of above complaints. She was hospitalized at our facility May 12 through the of this month with discharge diagnoses of pneumonia, sepsis secondary to same, non-ST elevation [place], COPD, along with other diagnoses. History and physical and discharge summary have been reviewed. Inpatient rehabilitation was discussed with the patient, but she declined, feeling she could take care of herself at home. She lives alone. Timothy however , once she got home, her shortness of breath simply worsened and she came back to the emergency room. She's had no fever or chills, nausea vomiting, chest or abdominal pain. Patient has been discussed with emergency room physician who evaluated the patient. . Laboratory results are listed in [employer] and are reviewed. X-ray summary results are listed below, with full report(s) reviewed. . Social history/personal habits: . Lives alone. Retired. Pack-a-day smoker. No alcohol or illicit drug use. Allergies/adverse reactions NKDA. Home medications Home medications initially autopopulated into [employer] may not accurately reflect patient's true medications, dosages, and/or frequencies. Unfortunately, patient uncertain of all her medications/dosages/frequencies. REVIEW OF SYSTEMS: Constitutional: No fever or chills. Eyes: Wears glasses. ENT: Continued intermittent problems with swallowing. Swallowing eval during the above hospital stay little to the recommendation for soft mechanical chopped meats, thin liquids, no straws, sips only, alternate bites and sips. Aspiration precautions. Please refer to swallowing eval report. No hearing problems or complaints. Pulmonary: See history and present illness. Cardiovascular: No current complaints, including chest pain. Gastrointestinal: No current complaints, including nausea or vomiting. Skin: No current complaints, including rashes. Hematologic: No unusual easy bruising or bleeding. Neurologic: No current complaints, including numbness or tingling. Musculoskeletal: Joint pain from arthritis. Psychiatric: Anxiety depression; denies suicidal or homicidal ideation. Endocrine: No current complaints, including polyuria. Genitourinary: No current complaints, including dysuria. PHYSICAL EXAMINATION: Neither height nor weight are recorded on the chart. Pulse 73 and regular. 96 % saturation on 2 L oxygen per nasal cannula. Respirations are 22 and unlabored. Blood pressure 169/64. Temperature 97.8. Well-nourished well-developed elderly female appearing approximately her stated age. Pleasant awake alert and cooperative. Appears to feel a bit under the weather, so to speak. Mildly anxious, without agitation. Skin is warm and dry. No grossly obvious evidence of rash in areas of skin examined. No subcutaneous nodules palpated. ENT: Hearing grossly normal to normal conversation. Tongue midline on protrusion pink and slightly tacky. Eyes: No scleral icterus. Pupils equal and reactive to light at 4 mm. [place] conjunctivae. Neck is supple and nontender to gentle active range of motion and palpation. Midline trachea. No palpable thyroid nodule mass enlargement or tenderness. Lymphatic: No palpable cervical or clavicular nodes. Neck and lymphatic exams limited by patient body habitus. Psychiatric: Reasonable insight into acute and chronic medical issues. Oriented to time location and why here. Lungs: Auscultation reveals equal breath sounds bilaterally. No use of accessory respiratory muscles. Diffusely mild coarse breath sounds, with expiratory wheezing bilaterally. Patient states is not uncommon for her to wheeze on a regular basis. Cardiovascular: Heart regular rate and rhythm, without gallop murmur or rub. No carotid or abdominal aortic bruits. No ankle or pedal edema. Faintly palpable dorsalis pedis pulses. Abdomen: soft, slightly, distended nontender with positive bowel sounds. Unable to adequately evaluate abdomen for masses or organomegaly due to distention. Extremities: Feet are warm and dry. No calf tenderness to compression. No grossly obvious visual evidence of calf swelling. Gentle manipulation of lower extremities fails to reveal any obvious evidence of injury or instability to knees hips or ankles. Neurologic: Moves upper extremities grossly normally. Patellar reflexes absent. Absent Babinski. Light touch is intact at feet. Dorsiflexion and plantarflexion of feet 5 / 5 and symmetric. Hospital Course Hospital Course: The patient was readmitted to the hospital and placed on telemetry. A diagnosis of COPD exacerbation was made, and the patient was placed on steroids , as well as nebulizers. CT scan of the chest did not reveal any acute infiltrate. Patient initially started on intravenous antibiotic, and this was discontinued and shifted back to oral. Patient was recently discharged and is on oral Levaquin. This was continued. Her home medications including Imdur, Ranexa, metoprolol, aspirin, lisinopril were resumed. She was placed on supplemental oxygen. Her wheezing eventually resolve. Patient significantly improved after 24 hours of hospitalization. habitat conservation planner was consulted for subacute rehabilitation. When a bed was available and she was eventually transferred. Physical Exam Vital Signs: Temp Pulse Resp BP Pulse Ox 98.2 F 74 18 139/63 H 96 05/20/16 07:36 05/20/16 09:16 05/20/16 09:16 05/20/16 07:36 05/20/16 09:16 Intake & Output 05/19/16 05/20/16 05/21/16 06:59 06:59 06:59 Intake Total 968 Balance 968 Weight 56.5 kg General appearance: PRESENT: no acute distress, cooperative Head exam: PRESENT: normocephalic Eye exam: PRESENT: EOMI Mouth exam: PRESENT: moist, neck supple Neck exam: ABSENT: JVD Respiratory exam: PRESENT: rhonchi - few bilateral, unlabored. ABSENT: wheezes Cardiovascular exam: PRESENT: RRR. ABSENT: gallop GI/Abdominal exam: PRESENT: soft. ABSENT: distended, tenderness Extremities exam: ABSENT: pedal edema Neurological exam: PRESENT: alert, awake, oriented to situation Skin exam: PRESENT: dry, warm. ABSENT: cyanosis Results Laboratory Results: 05/19/16 06:37 Impressions: Chest CT 05/18/16 19:50 IMPRESSION: No significant intrathoracic abnormalities were identified. Findings as noted above. Transfer Plan - Disposition Transfer Plan: Transferred to alf facility for subacute rehabilitation. Patient will also be followed by the physician at the facility. - Time Spent with Patient Time spent with patient: Less than 30 Minutes Qualifiers PATEINT BEING DISCHARGED WITH ANY OF THE FOLLOWING DIAGNOSIS?: No Plan Discharge Plan: Follow-up with primary care physician in one week. Follow-up with Dr. Gutierrez in one week. Time Spent: Less than 30 Minutes
[2016-05-20] MEDS: LEVOFLOXACIN 750 MG TABLET PO SCH (11:05)
[2016-05-20] MEDS: LISINOPRIL 10 MG TABLET PO SCH (11:06)
[2016-05-20] MEDS: ASPIRIN 325 MG TABLET PO SCH (11:06)
[2016-05-20] MEDS: METOPROLOL TARTRATE 50 MG TABLET PO SCH (11:07)
[2016-05-20] MEDS: ISOSORBIDE MONONITRATE 60 MG TAB.ER.24H PO SCH (11:07)
[2016-05-20] MEDS: HEPARIN SOD (PORCINE) 5,000 UNIT/ML 1 ML SYRINGE SUBCUT SCH (11:08)
[2016-05-20] MEDS: RANOLAZINE 500 MG TAB.SR.12H PO SCH (11:43)
[2016-05-20 14:16] VITALS: BP 154/74
== END 2016-05-20 15:02 | DRG 192 ==
LOC: ER 17:09 → EH 05-19 02:04 → UNDOADMIN 05-19 02:04 → EH 05-19 04:46 → 4S 05-19 06:58
PROVIDERS: ADMIT Family Medicine; ATTEND Family Medicine
PROC: 3E0F73Z Introduction of Anti-inflammatory into Respiratory Tract, Via Natural or Artificial Opening (ICD-10-PCS; principal; 2016-05-19)
DX: J44.1 Chronic obstructive pulmonary disease with (acute) exacerbation (principal); I10 Essential (primary) hypertension; F41.9 Anxiety disorder, unspecified; F32.9 Major depressive disorder, single episode, unspecified; M19.90 Unspecified osteoarthritis, unspecified site; F17.210 Nicotine dependence, cigarettes, uncomplicated; E78.5 Hyperlipidemia, unspecified; D64.9 Anemia, unspecified; I25.2 Old myocardial infarction; Z66 Do not resuscitate; Z60.2 Problems related to living alone; Z79.82 Long term (current) use of aspirin; Z79.899 Other long term (current) drug therapy; Z95.5 Presence of coronary angioplasty implant and graft; Z85.828 Personal history of other malignant neoplasm of skin; Z87.11 Personal history of peptic ulcer disease; Z83.6 Family history of other diseases of the respiratory system; Z80.9 Family history of malignant neoplasm, unspecified; Z82.49 Family history of ischemic heart disease and other diseases of the circulatory system
CPT/HCPCS: 36415; 71260; 80048; 82550; 82803; 82962; 83880; 84484; 85025; 94799; 99291; G8978-GP; G8979-GP; J1644; J3490; J7512; J7620